=== PATIENT | female | born 1960 | race Caucasian/White ===

== ENCOUNTER → 2018-03-15 | Outpatient (CLI) | payer MEDICARE, OTHER ==
--- NOTE | 2018-03-15 16:46 | MR ---
EXAMINATION TYPE: MR shoulder RT wo con DATE OF EXAM: 03/15/2018 COMPARISON: Prior MR right shoulder dated 05/18/2009 HISTORY: Right shoulder pain TECHNIQUE: Multiplanar, multisequence imaging of the shoulder is performed without contrast. FINDINGS: Rotator Cuff: Rotator cuff tear with retraction is again seen, shoulders are high riding. Acromioclavicular Joint: Arthropathy at the acromioclavicular joint is again noted Glenohumeral Joint: Shoulder is high riding. There is remodeling, arthropathy present Labrum: Mild irregularity noted at the superior labrum, difficult to exclude degenerative fraying or tear Biceps Tendon: There is abnormal intrinsic signal within the long head of biceps tendon compatible wi th partial tear, there is abnormal thickening, fluid signal is present about the tendon and there is susceptibility artifact along the course of the tendon, I question prior surgical intervention at thi s level, similar artifact seen on prior exam at the level of the bicipital groove, the tendon is not well appreciated central to this level. Bone marrow signal: Pseudocysts are present within the humeral head. Undersurface of the acromion maddie ws probable geode formation. Distal acromial spur noted Other: There is a joint effusion present. IMPRESSION: Chronic rotator cuff tear, postop changes, osteoarthritis similar to prior exam
== END | disposition home or self-care (01) ==
LOC: RADMRIMAIN 13:11
PROVIDERS: ATTEND Physician Assistant
DX: M19.011 Primary osteoarthritis, right shoulder (principal); M75.101 Unspecified rotator cuff tear or rupture of right shoulder, not specified as traumatic

== ENCOUNTER → 2018-03-21 | Outpatient (CLI) | payer MEDICARE, OTHER ==
--- NOTE | 2018-03-21 14:30 | MR ---
EXAMINATION TYPE: MR lumbar spine wo con DATE OF EXAM: 03/21/2018 COMPARISON: Prior lumbar MRI 07/31/2013 HISTORY: Back pain TECHNIQUE: Multiplanar, multisequence images of the lumbar spine were acquired. T12-L1 shows stable broad-based disc bulge causing anterior mass effect on the thecal sac. L1-L2: Normal disc appearance without desiccation. No herniation, protrusion or disc bulging. No ca nal stenosis is present. Foramina are patent bilaterally. L2-L3: There is some facet arthropathy change. Mild posterior broad-based disc bulge causes slight an terior mass effect on the thecal sac and is eccentric somewhat towards the left. No definite foramina l encroachment. L3-L4: There is facet arthropathy with hypertrophy ligamentum flavum encroaching somewhat on the post erior lateral thecal sac. No significant central stenosis, disc bulge extends eccentrically towards t he left. No foraminal encroachment. L4-L5: Listhesis contributes with a posterior broad-based disc bulge and facet arthropathy with hyper trophy of the ligamentum flavum causing a trefoil appearance of the thecal sac, moderate to severe ce ntral canal stenosis, bilateral foraminal encroachment, lateral recess stenosis similar to prior exam L5-S1: Facet arthropathy with fragility ligamentum flavum is noted no significant central stenosis. C ircumferential extension of endplate disc complex results in foraminal encroachment, broad-based post erior disc bulge may contact the proximal S1 nerve roots. Lumbar segments are intact. No paraspinal masses are identified. Conus medullaris has a normal appe arance. There is a spinal curvature as on prior. Anterolisthesis grade 1 L4-5 is again seen. There is multilevel spondylosis with endplate discogenic marrow signal change. Loss of disc height signal is greatest at L4-5. Small cortical cyst associated with the right kidney. IMPRESSION: Degenerative disc disease, facet arthropathy, spinal stenosis and additional findings above similar t o prior exam. Additional findings above.
== END ==
LOC: RADMRIMAIN 12:42
PROVIDERS: ATTEND Physical Medicine & Rehabilitation
DX: M48.061 Spinal stenosis, lumbar region without neurogenic claudication (principal); M51.26 Other intervertebral disc displacement, lumbar region; M51.36 Other intervertebral disc degeneration, lumbar region; M46.97 Unspecified inflammatory spondylopathy, lumbosacral region
CPT/HCPCS: 72148

== ENCOUNTER → 2018-10-29 | Day surgery (SDC) | payer MEDICARE, OTHER ==
[~2018-10-29] MED LIST: LACTATED RINGERS 1,000 ML IV SCH; LIDOCAINE 1% 20 ML VIAL (10MG/ML) FOR IV START INTRADERMA PRN; MIDAZOLAM 2 MG/2 ML VIAL ONE; PROPOFOL 10 MG/ML 20 ML VIAL IV ONE
[2018-10-29 08:17] VITALS: RESP 16; TEMP 97.6
--- NOTE | 2018-10-29 08:46 | P.GSHP ---
History of Present Illness H&P Date: 10/29/18 Chief Complaint: GI bleed This a 4-year-old female presents today for colonoscopy. Patient's had issues with GI bleed. Past Medical History Past Medical History: Hypertension, Osteoarthritis (OA) Additional Past Medical History / Comment(s): ALLERGIES/SINUS. CHRONIC PAIN. History of Any Multi-Drug Resistant Organisms: None Reported Past Surgical History: Section, Tonsillectomy Additional Past Surgical History / Comment(s): SINUS SURGERY. BONE SPUR ON ONE SHOULDER. BRONCHITIS Past Anesthesia/Blood Transfusion Reactions: No Reported Reaction Past Psychological History: Anxiety Smoking Status: Current every day smoker Past Alcohol Use History: Occasional Additional Past Alcohol Use History / Comment(s): SMOKES 1PPD, OVER 4O+ YEARS. Past Drug Use History: None Reported Medications and Allergies Home Medications Medication Instructions Recorded Confirmed Type Cetirizine HCl [Zyrtec] 10 mg PO QAM 10/25/18 10/25/18 History DULoxetine HCL [Cymbalta] 30 mg PO QAM 10/25/18 10/25/18 History DULoxetine HCL [Cymbalta] 60 mg PO QAM 10/25/18 10/25/18 History HYDROcodone/APAP 7.5-325MG [[place] 1 tab PO QID PRN 10/25/18 10/25/18 History 7.5-325] Hydrochlorothiazide 12.5 mg PO QAM 10/25/18 10/25/18 History Meloxicam [Mobic] 15 mg PO QAM 10/25/18 10/25/18 History Mirabegron [Myrbetriq] 25 mg PO QAM 10/25/18 10/25/18 History Montelukast [Singulair] 10 mg PO QAM 10/25/18 10/25/18 History hydrOXYzine HCL 25 mg PO TID PRN 10/25/18 10/25/18 History Allergies Allergy/AdvReac Type Severity Reaction Status Date / Time Penicillins Allergy Swelling, Verified 10/29/18 08:10 ITCHING pseudoephedrine Allergy Itching Verified 10/29/18 08:10 [From Sudafed] Surgical - Exam Vital Signs Temp Pulse Resp BP Pulse Ox 97.6 F 62 16 166/72 96 10/29/18 08:16 10/29/18 08:16 10/29/18 08:16 10/29/18 08:16 10/29/18 08:16 - General well developed, well nourished - Eyes PERRL - ENT normal pinna - Neck no masses - Respiratory normal expansion - Cardiovascular Rhythm: regular - Abdomen Abdomen: soft, non tender Assessment and Plan Assessment: GI bleed. We'll perform colonoscopy.
--- NOTE | 2018-10-29 08:59 | P.OP ---
Date of Procedure: 10/29/18 Preoperative Diagnosis: GI bleed Postoperative Diagnosis: External hemorrhoids Procedure(s) Performed: Colonoscopy Anesthesia: MAC Surgeon: Erik Pressley Pathology: none sent Condition: stable Disposition: PACU Description of Procedure: The patient's placed on the endoscopy table in the lateral position. She received IV sedation. Digital rectal exam was performed which revealed severe external hemorrhoids. Flexible colonoscope was then placed patient anus and passed throughout the entire colon. The ileocecal valve lesions. The cecum, ascending and transverse colon appeared normal. The descending and sigmoid colon appeared normal. Scope summer back the rectum and this appeared normal. Scope withdrawn for patient.
[2018-10-29 09:25] VITALS: BP 199/73; PULSE 78
== END | disposition home or self-care (01) ==
LOC: ORWHC2ENDO 07:59
PROVIDERS: ATTEND Surgery
DX: K64.4 Residual hemorrhoidal skin tags (principal); F17.200 Nicotine dependence, unspecified, uncomplicated; G89.29 Other chronic pain; I10 Essential (primary) hypertension; M19.90 Unspecified osteoarthritis, unspecified site; Z88.0 Allergy status to penicillin; Z79.891 Long term (current) use of opiate analgesic; Z79.51 Long term (current) use of inhaled steroids; Z79.899 Other long term (current) drug therapy
CPT/HCPCS: 45378; J2250; J2704

== ENCOUNTER 2020-04-10 13:06 | Inpatient (IN) | payer MEDICARE, OTHER ==
[2020-04-10] MEDS ORDERED: KETOROLAC 15 MG/ML 1 ML VIAL IVP STA (13:24)
[2020-04-10] MEDS ORDERED: SODIUM CHLORIDE 0.9% 1,000 ML IV ONE (13:24)
--- NOTE | 2020-04-10 13:25 | ED ---
ENT HPI - General Chief complaint: ENT Stated complaint: swollen glands, trouble speaking Time Seen by Provider: 04/10/20 13:14 Source: patient, RN notes reviewed Mode of arrival: ambulatory Limitations: no limitations - History of Present Illness Initial comments: This a 59-year-old female presents emergency Department chief complaint right- sided neck mass. Patient states that she's had a sore throat pain for almost 1 week. Patient was placed on azithromycin states that she completed a course of antibiotics prescribed by PCP states has not helped. She states she's had this in the past but usually resolves. No history of throat cancer no prior surgeries. Denies any difficulty breathing states it is painful to swallow no headache dizziness. Patient does admit that she is a smoker. - Related Data Home Medications Medication Instructions Recorded Confirmed Cetirizine HCl [Zyrtec] 10 mg PO QAM 10/25/18 10/25/18 DULoxetine HCL [Cymbalta] 30 mg PO QAM 10/25/18 10/25/18 DULoxetine HCL [Cymbalta] 60 mg PO QAM 10/25/18 10/25/18 HYDROcodone/APAP 7.5-325MG [[place] 1 tab PO QID PRN 10/25/18 10/25/18 7.5-325] Hydrochlorothiazide 12.5 mg PO QAM 10/25/18 10/25/18 [hydroCHLOROthiazide] Meloxicam [Mobic] 15 mg PO QAM 10/25/18 10/25/18 Mirabegron [Myrbetriq] 25 mg PO QAM 10/25/18 10/25/18 Montelukast [Singulair] 10 mg PO QAM 10/25/18 10/25/18 hydrOXYzine HCL 25 mg PO TID PRN 10/25/18 10/25/18 Previous Rx's Medication Instructions Recorded predniSONE 50 mg PO DAILY #5 tab 04/10/20 valACYclovir HCL [Valtrex] 1,000 mg PO Q8HR #30 tab 04/10/20 Allergies Allergy/AdvReac Type Severity Reaction Status Date / Time Penicillins Allergy Swelling, Verified 04/10/20 13:11 ITCHING pseudoephedrine Allergy Itching Verified 04/10/20 13:11 [facility] Review of Systems ROS Statement: Those systems with pertinent positive or pertinent negative responses have been documented in the HPI. ROS Other: All systems not noted in ROS Statement are negative. Past Medical History Past Medical History: Hypertension, Osteoarthritis (OA) Additional Past Medical History / Comment(s): ALLERGIES/SINUS. CHRONIC PAIN. History of Any Multi-Drug Resistant Organisms: None Reported Past Surgical History: Section, Tonsillectomy Additional Past Surgical History / Comment(s): SINUS SURGERY. BONE SPUR ON ONE SHOULDER. BRONCHITIS Past Anesthesia/Blood Transfusion Reactions: No Reported Reaction Past Psychological History: Anxiety Smoking Status: Current every day smoker Past Alcohol Use History: Occasional Past Drug Use History: None Reported General Exam Limitations: no limitations General appearance: alert, in no apparent distress Head exam: Present: atraumatic, normocephalic, normal inspection Eye exam: Present: normal appearance, PERRL, EOMI. Absent: scleral icterus, conjunctival injection, periorbital swelling ENT exam: Present: mucous membranes dry. Absent: normal exam (Dry oropharynx), normal oropharynx, mucous membranes moist Neck exam: Present: tenderness, full ROM, lymphadenopathy. Absent: normal inspection (Large right-sided firm nonfluctuant neck mass), meningismus Respiratory exam: Present: normal lung sounds bilaterally. Absent: respiratory distress, wheezes, rales, rhonchi, stridor Cardiovascular Exam: Present: regular rate, normal rhythm, normal heart sounds. Absent: systolic murmur, diastolic murmur, rubs, gallop, clicks Course Vital Signs 04/10/20 13:07 Temperature 99.2 F Pulse Rate 100 Respiratory 20 Rate Blood Pressure 139/62 O2 Sat by Pulse 100 Oximetry Medical Decision Making - Medical Decision Making 59-year-old female presented for right-sided facial paralysis. This doesn't involve the right forehead right eyelid. Patient has George's palsy. Patient be discharged with antivirals, prednisone. She will follow-up with urology and return for any worsening change in symptoms. We discussed eyedrops the right eye she may take her right eye shut if unable to completely close. - Lab Data Result diagrams: 04/10/20 13:41 04/10/20 13:41 Lab Results 04/10/20 04/10/20 04/10/20 Range/Units 13:41 13:41 13:41 WBC 20.5 H (3.8-10.6) k/uL RBC 3.73 L (3.80-5.40) m/uL Hgb 12.2 (11.4-16.0) gm/dL Hct 35.4 (34.0-46.0) % MCV 94.9 (80.0-100.0) fL MCH 32.5 (25.0-35.0) pg MCHC 34.3 (31.0-37.0) g/dL RDW 12.7 (11.5-15.5) % Plt Count 351 (150-450) k/uL MPV 7.2 Neutrophils % 77 % Lymphocytes % 15 % Monocytes % 6 % Eosinophils % 1 % Basophils % 1 % Neutrophils # 15.8 H (1.3-7.7) k/uL Lymphocytes # 3.1 (1.0-4.8) k/uL Monocytes # 1.2 H (0-1.0) k/uL Eosinophils # 0.2 (0-0.7) k/uL Basophils # 0.1 (0-0.2) k/uL Sodium 132 L (137-145) mmol/L Potassium 4.4 (3.5-5.1) mmol/L Chloride 97 L (98-107) mmol/L Carbon Dioxide 24 (22-30) mmol/L Anion Gap 11 mmol/L BUN 16 (7-17) mg/dL Creatinine 0.97 (0.52-1.04) mg/dL Est GFR (CKD-EPI)AfAm 73 (>60 ml/min/1.73 sqM) Est GFR (CKD-EPI)NonAf 64 (>60 ml/min/1.73 sqM) Glucose 100 H (74-99) mg/dL Plasma Lactic Acid Ridge (0.7-2.0) mmol/L Calcium 9.6 (8.4-10.2) mg/dL Total Bilirubin 0.6 (0.2-1.3) mg/dL AST 21 (14-36) U/L ALT 11 (4-34) U/L Alkaline Phosphatase 98 (38-126) U/L Total Protein 7.2 (6.3-8.2) g/dL Albumin 4.2 (3.5-5.0) g/dL Heterophile Antibody Negative (Negative) Group A Strep Rapid (Negative) 04/10/20 04/10/20 Range/Units 13:41 13:41 WBC (3.8-10.6) k/uL RBC (3.80-5.40) m/uL Hgb (11.4-16.0) gm/dL Hct (34.0-46.0) % MCV (80.0-100.0) fL MCH (25.0-35.0) pg MCHC (31.0-37.0) g/dL RDW (11.5-15.5) % Plt Count (150-450) k/uL MPV Neutrophils % % Lymphocytes % % Monocytes % % Eosinophils % % Basophils % % Neutrophils # (1.3-7.7) k/uL Lymphocytes # (1.0-4.8) k/uL Monocytes # (0-1.0) k/uL Eosinophils # (0-0.7) k/uL Basophils # (0-0.2) k/uL Sodium (137-145) mmol/L Potassium (3.5-5.1) mmol/L Chloride (98-107) mmol/L Carbon Dioxide (22-30) mmol/L Anion Gap mmol/L BUN (7-17) mg/dL Creatinine (0.52-1.04) mg/dL Est GFR (CKD-EPI)AfAm (>60 ml/min/1.73 sqM) Est GFR (CKD-EPI)NonAf (>60 ml/min/1.73 sqM) Glucose (74-99) mg/dL Plasma Lactic Acid Ridge 1.3 (0.7-2.0) mmol/L Calcium (8.4-10.2) mg/dL Total Bilirubin (0.2-1.3) mg/dL AST (14-36) U/L ALT (4-34) U/L Alkaline Phosphatase (38-126) U/L Total Protein (6.3-8.2) g/dL Albumin (3.5-5.0) g/dL Heterophile Antibody (Negative) Group A Strep Rapid Negative (Negative) Disposition Clinical Impression: George's palsy Disposition: HOME SELF-CARE Condition: Stable Instructions (If sedation given, give patient instructions): George Palsy (ED) Additional Instructions: Please return to the Emergency Department if symptoms worsen or any other concerns. Prescriptions: predniSONE 50 mg PO DAILY #5 tab valACYclovir HCL [Valtrex] 1,000 mg PO Q8HR #30 tab Is patient prescribed a controlled substance at d/c from ED?: No Referrals: Johnathan Song DO [Primary Care Provider] - 1-2 days Shanice Lawrence MD [REFERRING] - 1-2 days Time of Disposition: 15:06
[2020-04-10 14:21] LABS: Basophils # (A) 0.1 k/uL (0-0.2); Basophils % (A) 1 %; Eosinophils # (A) 0.2 k/uL (0-0.7); Eosinophils % (A) 1 %; HCT 35.4 % (34.0-46.0); HGB 12.2 gm/dL (11.4-16.0); Lymphocytes # (A) 3.1 k/uL (1.0-4.8); Lymphocytes % (A) 15 %; MCH 32.5 pg (25.0-35.0); MCHC 34.3 g/dL (31.0-37.0); MCV 94.9 fL (80.0-100.0); Mean Platelet Volume 7.2; Monocytes # (A) 1.2 k/uL (0-1.0); Monocytes % (A) 6 %; Neutrophils # (A) 15.8 k/uL (1.3-7.7); Neutrophils % (A) 77 %; Platelet Count 351 k/uL (150-450); RBC 3.73 m/uL (3.80-5.40); RDW 12.7 % (11.5-15.5); WBC 20.5 k/uL (3.8-10.6)
[2020-04-10 14:44] LABS: Albumin 4.2 g/dL (3.5-5.0); Calcium 9.6 mg/dL (8.4-10.2); Potassium 4.4 mmol/L (3.5-5.1); Total Bilirubin 0.6 mg/dL (0.2-1.3); Total Protein 7.2 g/dL (6.3-8.2)
--- NOTE | 2020-04-10 15:09 | ED ---
Medical Decision Making - Lab Data Result diagrams: 04/10/20 13:41 04/10/20 13:41 <Lamont Zamorano - Last Filed: 04/10/20 15:47> - Lab Data Result diagrams: 04/10/20 13:41 04/10/20 13:41 <Praveen Pedro - Last Filed: 04/10/20 15:50> - Medical Decision Making Patient reevaluated and reexamined by myself, Dr. Zamorano. Patient does have tender right anterior/lateral neck mass. Patient states that is living and present for around one week. Patient does have elevated white blood cell count and abnormal CT. Patient has been on outpatient antibiotics. Patient states she does have occasional rare difficulty with swallowing. No dyspnea. Patient does have mildly hoarse voice. Patient be started with IV antibiotics and consult with ENT and oncology and do agree with PA findings. This includes d iagnostic interpretation and treatment plan. (Lamont Zamorano) Prior MDM was an error Patient is a 59-year-old female presented for right- sided neck pain swelling. There is concerning and adenopathy and neck mass or cancer. I discuss case with Dr. Westfall or constipation placed on antibiotics, consult to oncology and ENT. (Praveen Pedro) - Lab Data Lab Results 04/10/20 04/10/20 04/10/20 Range/Units 13:41 13:41 13:41 WBC 20.5 H (3.8-10.6) k/uL RBC 3.73 L (3.80-5.40) m/uL Hgb 12.2 (11.4-16.0) gm/dL Hct 35.4 (34.0-46.0) % MCV 94.9 (80.0-100.0) fL MCH 32.5 (25.0-35.0) pg MCHC 34.3 (31.0-37.0) g/dL RDW 12.7 (11.5-15.5) % Plt Count 351 (150-450) k/uL MPV 7.2 Neutrophils % 77 % Lymphocytes % 15 % Monocytes % 6 % Eosinophils % 1 % Basophils % 1 % Neutrophils # 15.8 H (1.3-7.7) k/uL Lymphocytes # 3.1 (1.0-4.8) k/uL Monocytes # 1.2 H (0-1.0) k/uL Eosinophils # 0.2 (0-0.7) k/uL Basophils # 0.1 (0-0.2) k/uL Sodium 132 L (137-145) mmol/L Potassium 4.4 (3.5-5.1) mmol/L Chloride 97 L (98-107) mmol/L Carbon Dioxide 24 (22-30) mmol/L Anion Gap 11 mmol/L BUN 16 (7-17) mg/dL Creatinine 0.97 (0.52-1.04) mg/dL Est GFR (CKD-EPI)AfAm 73 (>60 ml/min/1.73 sqM) Est GFR (CKD-EPI)NonAf 64 (>60 ml/min/1.73 sqM) Glucose 100 H (74-99) mg/dL Plasma Lactic Acid Ridge (0.7-2.0) mmol/L Calcium 9.6 (8.4-10.2) mg/dL Total Bilirubin 0.6 (0.2-1.3) mg/dL AST 21 (14-36) U/L ALT 11 (4-34) U/L Alkaline Phosphatase 98 (38-126) U/L Total Protein 7.2 (6.3-8.2) g/dL Albumin 4.2 (3.5-5.0) g/dL Heterophile Antibody Negative (Negative) Group A Strep Rapid (Negative) 04/10/20 04/10/20 Range/Units 13:41 13:41 WBC (3.8-10.6) k/uL RBC (3.80-5.40) m/uL Hgb (11.4-16.0) gm/dL Hct (34.0-46.0) % MCV (80.0-100.0) fL MCH (25.0-35.0) pg MCHC (31.0-37.0) g/dL RDW (11.5-15.5) % Plt Count (150-450) k/uL MPV Neutrophils % % Lymphocytes % % Monocytes % % Eosinophils % % Basophils % % Neutrophils # (1.3-7.7) k/uL Lymphocytes # (1.0-4.8) k/uL Monocytes # (0-1.0) k/uL Eosinophils # (0-0.7) k/uL Basophils # (0-0.2) k/uL Sodium (137-145) mmol/L Potassium (3.5-5.1) mmol/L Chloride (98-107) mmol/L Carbon Dioxide (22-30) mmol/L Anion Gap mmol/L BUN (7-17) mg/dL Creatinine (0.52-1.04) mg/dL Est GFR (CKD-EPI)AfAm (>60 ml/min/1.73 sqM) Est GFR (CKD-EPI)NonAf (>60 ml/min/1.73 sqM) Glucose (74-99) mg/dL Plasma Lactic Acid [place] 1.3 (0.7-2.0) mmol/L Calcium (8.4-10.2) mg/dL Total Bilirubin (0.2-1.3) mg/dL AST (14-36) U/L ALT (4-34) U/L Alkaline Phosphatase (38-126) U/L Total Protein (6.3-8.2) g/dL Albumin (3.5-5.0) g/dL Heterophile Antibody (Negative) Group A Strep Rapid Negative (Negative) Disposition <Lamont Zamorano - Last Filed: 04/10/20 15:47> <Praveen Pedro - Last Filed: 04/10/20 15:50> Clinical Impression: Cervical lymphadenopathy, Neck mass, Leukocytosis Disposition: ADMITTED IP TO THIS [facility] Condition: Fair Additional Instructions: Please return to the Emergency Department if symptoms worsen or any other concerns. Referrals: Shanice Lawrence MD [REFERRING] - 1-2 days Johnathan Song DO [Primary Care Provider] - 1-2 days
--- NOTE | 2020-04-10 15:34 | CT ---
EXAMINATION TYPE: CT soft tissue neck w con DATE OF EXAM: 04/10/2020 HISTORY: right submandibular swelling COMPARISON: CT cervical spine September 04, 2019 CT DLP: 192 mGycm. Automated Exposure Control for Dose Reduction was Utilized. TECHNIQUE: CT scan of the neck is performed with IV Contrast, patient injected with 100 mL of Isovue 300, axial images are obtained, coronal and sagittal reformatted images are reviewed. FINDINGS: Airway: Mild underlying emphysematous change. No obvious enhancing mucosal lesion. Parotid/submandibular glands: No gross abnormality seen. Carotid/Vascular Structures: No significant abnormality. Osseous Structures: Loss of normal cervical curvature mild multilevel disc space narrowing. Other: Abnormal heterogeneous 1.9 x 1.3 cm oval mass measures 2.8 cm craniocaudal dimension X 43 and coronal image 36 just posterior to the inferior aspect of the right submandibular gland. There are ad ditional prominent suspicious lymph nodes scattered throughout the neck particularly right aspect. Fo r reference there is 11 x 9 mm lymph node on image 37 just below level of hyoid bone. There is 11 x 9 mm lymph node at level of thyroid gland right aspect that measures 28. IMPRESSION: Abnormal suspicious right-sided neck adenopathy. Underlying primary neck or throat neopla sm must be excluded despite nonvisualization of obvious enhancing mass. ENT referral advised for furt her workup and/or management.
[2020-04-10] MEDS ORDERED: DEXAMETHASONE SOD PHOSPHATE 10 MG/ML 1 ML VIAL IV STA (15:48)
[2020-04-10] MEDS ORDERED: NALOXONE 0.4 MG/ML 1 ML VIAL IV PRN (15:50)
[2020-04-10] MEDS ORDERED: HYDROcodone/APAP 7.5-325MG 1 EACH TAB PO PRN (15:51)
[2020-04-10] MEDS ORDERED: hydrOXYzine HCL 25 MG TAB PO PRN (15:51)
[2020-04-10] MEDS: SODIUM CHLORIDE 0.9% 1,000 ML IV SCH (16:24)
[2020-04-11] MEDS: MONTELUKAST 10 MG TAB PO SCH (08:54)
[2020-04-11] MEDS: SODIUM CHLORIDE 0.9% 1,000 ML IV SCH (08:55)
[2020-04-11] MEDS ORDERED: hydroCHLOROthiazide 12.5 MG CAP PO SCH (09:00)
[2020-04-11] MEDS ORDERED: DULoxetine HCL 60 MG CAPSULE.DR PO SCH (09:00)
[2020-04-11] MEDS ORDERED: DULoxetine HCL 30 MG CAPSULE.DR PO SCH (09:00)
[2020-04-11] MEDS: MIRABEGRON 25 MG PO SCH (11:05)
[2020-04-11] MEDS ORDERED: ALBUTEROL NEBULIZED 2.5 MG/3 ML INHALATION PRN ×2 (11:16)
[2020-04-11] MEDS ORDERED: LORATADINE 10 MG TAB PO SCH (11:30)
[2020-04-11] MEDS: AZELASTINE 137MCG/SPRAY EA NOSTRIL SCH ×2 (12:23→20:14)
[2020-04-11] MEDS: DULoxetine HCL 20 MG CAPSULE.DR PO SCH (12:24)
[2020-04-11] MEDS ORDERED: RX INFO: IV CONTRAST WAS GIVEN 1 EACH MISC MISCELLANE PRN (13:10)
--- NOTE | 2020-04-11 13:10 | P.CONS ---
History of Present Illness - Reason for Consult Consult date: 04/11/20 Neck adenopathy, leukocytosis - History of Present Illness Patient is a 59-year-old white female, who presented to the emergency room with complains of noticing painful lumps in the right upper neck. The patient had actually been having a sore throat for somewhat more than a week. She had azithromycin and then steroids as an outpatient, without much improvement. She then noticed a mass in the right upper neck, which appeared to become more prominent and tender on palpation. She she reports difficulty in swallowing liquids, especially large bolus of water, off and on. She denies any problems with swallowing of solids. She has had significant hoarseness of voice for the past week.. Patient on exam of the ER was found to have palpable right neck adenopathy and underwent CT of the soft tissue neck. This revealed enlarged lymph nodes mostly on the right side of the neck involving the upper, as well as the middle chains. Most prominent was a 1.9 cm node just posterior to the right submandibular gland. Consult was therefore placed for further evaluation and recommendations. Patient is a current smoker. No prior history of malignancy. Review of Systems Constitutional: Reports chills, Reports fever Eyes: denies blurred vision, denies pain Ears, nose, mouth and throat: Reports dysphagia, Reports neck fullness/pressure, Reports neck lump, Reports post-nasal drip, Reports sinus pressure, Reports sore throat Cardiovascular: Denies chest pain, Denies shortness of breath Respiratory: Reports cough (Very mild) Gastrointestinal: Denies abdominal pain, Denies diarrhea, Denies nausea, Denies vomiting Genitourinary: Denies dysuria, Denies hematuria Menstruation: Reports postmenopausal Musculoskeletal: Denies myalgias Integumentary: Denies pruritus, Denies rash Neurological: Denies numbness, Denies weakness Psychiatric: Denies anxiety, Denies depression Endocrine: Denies fatigue, Denies weight change Hematologic/Lymphatic: Reports as per HPI, Reports lymphadenopathy Past Medical History Past Medical History: Hypertension, Osteoarthritis (OA) Additional Past Medical History / Comment(s): ALLERGIES/SINUS. CHRONIC PAIN. History of Any Multi-Drug Resistant Organisms: None Reported Past Surgical History: Section, Tonsillectomy Additional Past Surgical History / Comment(s): SINUS SURGERY. BONE SPUR ON ONE SHOULDER. Past Anesthesia/Blood Transfusion Reactions: No Reported Reaction Past Psychological History: Anxiety Smoking Status: Current every day smoker Past Alcohol Use History: Occasional Additional Past Alcohol Use History / Comment(s): SMOKES 3/4-1PPD, OVER 4O+ YEARS. Past Drug Use History: None Reported Medications and Allergies Home Medications Medication Instructions Recorded Confirmed Type Cetirizine HCl [Zyrtec] 10 mg PO QAM 10/25/18 04/10/20 History DULoxetine HCL [Cymbalta] 60 mg PO DAILY 10/25/18 04/10/20 History HYDROcodone/APAP 7.5-325MG [[place] 1 tab PO TID PRN 10/25/18 04/10/20 History 7.5-325] Montelukast [Singulair] 10 mg PO HS 10/25/18 04/10/20 History hydrOXYzine HCL 25 mg PO TID PRN 10/25/18 04/10/20 History Albuterol Nebulized [Ventolin 2.5 mg INHALATION RT-Q8H PRN 04/10/20 04/10/20 History Nebulized] Albuterol Sulfate [Ventolin HFA] 2 puff INHALATION RT-Q4H PRN 04/10/20 04/10/20 History Azelastine HCl 2 spray EA NOSTRIL BID 04/10/20 04/10/20 History DULoxetine HCL 40 mg PO DAILY 04/10/20 04/10/20 History EPINEPHrine (Auto Inject) [Epipen] 0.3 mg IM ONCE PRN 04/10/20 04/10/20 History Fluticasone Nasal [place] [Flonase 2 spray EA NOSTRIL DAILY 04/10/20 04/10/20 History Nasal [place]] Loratadine [Claritin] 10 mg PO DAILY 04/10/20 04/10/20 History Tiotropium 2.5 Mcg/Puff [Spiriva 2 puff INHALATION RT-DAILY 04/10/20 04/10/20 History Respimat 2.5 Mcg] Allergies Allergy/AdvReac Type Severity Reaction Status Date / Time Penicillins Allergy Swelling, Verified 04/10/20 16:41 ITCHING pseudoephedrine Allergy Itching Verified 04/10/20 16:41 [From Sudafed] Physical Exam Vitals: Vital Signs Temp Pulse Pulse Resp BP BP Pulse Ox 04/11/20 04:40 98.2 F 92 16 112/50 97 04/10/20 21:40 99.0 F 83 16 151/66 95 04/10/20 18:25 78 16 128/71 99 04/10/20 16:18 98.4 F 88 18 141/79 96 04/10/20 13:07 99.2 F 100 20 139/62 100 Intake and Output 04/10/20 04/11/20 04/11/20 22:59 06:59 14:59 Other: Voiding Method Toilet # Voids 2 Weight 43.091 kg - Constitutional General appearance: no acute distress - EENT Eyes: EOMI, PERRLA ENT: hearing grossly normal, normal oropharynx - Neck Neck: lymphadenopathy (Most prominent 2 cm right submandibular. At least 2-3 other nodes palpable right middle and lower cervical, largest 1 cm middle posterior) - Respiratory Respiratory: bilateral: CTA - Cardiovascular Rhythm: regular Heart sounds: normal: S1, S2 - Gastrointestinal General gastrointestinal: normal bowel sounds, soft - Integumentary Integumentary: normal - Neurologic Neurologic: CNII-XII intact - Musculoskeletal Musculoskeletal: generalized weakness, strength equal bilaterally - Psychiatric Psychiatric: A&O x's 3, appropriate affect Results CBC & Chem 7: 04/10/20 13:41 04/10/20 13:41 Labs: Abnormal Lab Results - Last 24 Hours (Table) 04/10/20 04/10/20 Range/Units 13:41 13:41 WBC 20.5 H (3.8-10.6) k/uL RBC 3.73 L (3.80-5.40) m/uL Neutrophils # 15.8 H (1.3-7.7) k/uL Monocytes # 1.2 H (0-1.0) k/uL Sodium 132 L (137-145) mmol/L Chloride 97 L (98-107) mmol/L Glucose 100 H (74-99) mg/dL Microbiology - Last 24 Hours (Table) 04/10/20 13:41 Group A Strep Throat Culture - Preliminary Throat Comments: CT neck report reviewed Assessment and Plan (1) Cervical lymphadenopathy Narrative/Plan: The patient's physical exam findings as well as computed tomography scan findings, and implications, were reviewed with her. She was advised that her symptoms of some fever and chills, as well as element of symptoms over a week, and tender adenopathy argues in favor of infection/inflammation. However with her history of smoking, as well as the hoarseness and dysphagia, malignancy definitely remains a concern. - Case was discussed with the admitting service. A CT of the chest will be ordered to rule out any chest mass causing recurrent laryngeal nerve palsy. If this is negative, then the patient would need ENT evaluation for her vocal cords and the neck nodes. In that situation, if vocal cords are normal, then the recommendation would be to biopsy the neck nodes if there are persistent, with treatment for infection. Current Visit: Yes Status: Acute Code(s): R59.0 - LOCALIZED ENLARGED LYMPH NODES SNOMED Code(s): 246516658 Plan: Defer to the admitting service for management of her other medical problems
[2020-04-11] MEDS: DULoxetine HCL 60 MG CAPSULE.DR PO SCH (14:37)
[2020-04-11] MEDS: NAPROXEN 250 MG TAB PO SCH ×3 (14:37→20:13)
[2020-04-11] MEDS: LORATADINE-PSEUDOEPH 5-120 MG 1 EACH TAB.ER.12H PO SCH ×2 (14:39→20:12)
[2020-04-11] MEDS: NICOTINE 21MG/24HR PATCH TRANSDERM SCH (14:41)
[2020-04-11] MEDS: ENOXAPARIN 40 MG/0.4 ML SYRINGE SQ SCH (14:41)
[2020-04-11 15:47] LABS: African American GFR (CKD) 64 (>60 ml/min/1.73 sqM); Anion Gap 7 mmol/L; Blood Urea Nitrogen 19 mg/dL (7-17); Carbon Dioxide 25 mmol/L (22-30); Chloride 108 mmol/L (98-107); Glucose 183 mg/dL (74-99); Non-African American GFR(CKD) 56 (>60 ml/min/1.73 sqM); Potassium 4.1 mmol/L (3.5-5.1); Sodium 140 mmol/L (137-145)
[2020-04-11] MEDS ORDERED: IPRATROPIUM 0.5 MG/2.5 ML NEBU INHALATION SCH (16:00)
--- NOTE | 2020-04-11 16:51 | CT ---
EXAMINATION TYPE: CT chest w con DATE OF EXAM: 04/11/2020 COMPARISON: None HISTORY: chest mass CT DLP: 138.9 mGycm Automated exposure control for dose reduction was used. CONTRAST: CT scan of the chest is performed with IV Contrast, patient injected with 80cc mL of Isovue 300. FINDINGS: LUNGS: The lungs are remarkable for emphysematous changes. Some bandlike areas of increased attenuati on at the lung bases may reflect atelectasis or scarring., there is no concerning parenchymal mass or nodule identified. There is no pleural effusion or pneumothorax seen. The tracheobronchial tree i s patent, some retained secretions are present within the trachea. MEDIASTINUM: There are no greater than 1 cm hilar or mediastinal lymph nodes. No pericardial effusi on is seen. Pulmonary artery is dilated. AORTA: No additional significant abnormality is seen. OTHER: No additional significant abnormality is seen. IMPRESSION: Emphysema, correlate for pulmonary artery hypertension UE UE used
[2020-04-11] MEDS: IPRATROPIUM-ALBUTEROL 3 ML NEB INHALATION SCH ×2 (17:06→20:50)
[2020-04-11] MEDS: BUDESONIDE 1 MG/2 ML NEBU INHALATION SCH ×2 (17:07)
--- NOTE | 2020-04-11 21:17 | P.HPIM ---
History of Present Illness H&P Date: 04/11/20 Chief Complaint: Swelling in the right side of the neck History of presenting complaint: This is a pleasant 59-year-old patient of Dr. Letha Song. Chronic stable medical conditions include hypertension, osteoarthritis, ALLERGIES, patient is a smoker. presentation story started about 10 days ago. Initially patient is felt to have a right ear infection. Saw her family doctor. prescribed antibiotics. noticed enlarging lymph node in the right side of the neck below the right jaw and the ear. Also had fever and chills. significant cough. With the sinus drainage. Decreased appetite decreased taste. Was finding it hard to swallow. After receiving antibiotics for now arrival feeling a bit better. Review of systems: GEN.: As above EYES: None HEENT: As above NECK: As above RESPIRATORY: Cough and wheezing CARDIOVASCULAR: None GASTROINTESTINAL: None GENITOURINARY: None MUSCULOSKELETAL: Joint pains] LYMPHATICS: None HEMATOLOGICAL: None PSYCHIATRY: Anxious NEUROLOGICAL: None Past medical history to include: Hypertension, osteoarthritis, anxiety, Social history: daughter lives with her. Smokes about three-quarter packs a day. Alcohol occasionally. Physical examination: VITAL SIGNS: 99.2, 100, 20, 139/62, 100% room air GENERAL: BMI 19.2, sitting up, tired. EYES: Pupils equal. Conjunctiva normal. HEENT: External appearance of nose and ears normal, oral cavity grossly normal enlarged lymph node, tender behind right jaw, below the earlobe. NECK: JVD not raised; masses not palpable. HEART: First and second heart sounds are normal; no edema. LUNGS: Respiratory rate increased, decreased breath sounds prolonged expiration and wheezing. ABDOMEN: Soft, nontender, liver spleen not palpable, no masses palpable. PSYCH: Alert and oriented x3; mood and affect anxiousl. NEUROLOGICAL: Cranial nerves grossly intact; no facial asymmetry, power and sensation grossly intact. LYMPHATICS: Lymph nodes palpable in the right side of the neck INVESTIGATIONS, reviewed in the clinical context: WBC 20.5 hemoglobin 12.2 platelets 351 increased neutrophils potassium 4.4 creatinine 0.97 Coronavirus [PCF]-not detected Heterophile antibody negative, group A strep rapid-negative Computed tomography scan soft tissue neck without contrast: Abnormal suspicion right-sided neck adenopathy. Neoplasm could not be excluded. Assessment and plan: -Acute COPD exacerbation in a current smoker. Patient started on , nebulized bronchodilators. IV Solu-Medrol. -Enlarging right cervical adenopathy likely secondary to right ear infection. -Chronic nicotine dependence patient active cigarette smoker -Chronic anxiety disorder, for depression on Cymbalta -Acute on chronic sinusitis with active postnasal drainage precipitating bouts of coughing. Started patient on Claritin-D Discussed with oncology Dr. Jung. Patient get a computed tomography scan of the chest. Care was discussed with the patient. Questions answered. ENT has been consulted. Past Medical History Past Medical History: Hypertension, Osteoarthritis (OA) Additional Past Medical History / Comment(s): ALLERGIES/SINUS. CHRONIC PAIN. History of Any Multi-Drug Resistant Organisms: None Reported Past Surgical History: Section, Tonsillectomy Additional Past Surgical History / Comment(s): SINUS SURGERY. BONE SPUR ON ONE SHOULDER. Past Anesthesia/Blood Transfusion Reactions: No Reported Reaction Past Psychological History: Anxiety Smoking Status: Current every day smoker Past Alcohol Use History: Occasional Additional Past Alcohol Use History / Comment(s): SMOKES 3/4-1PPD, OVER 4O+ YEARS. Past Drug Use History: None Reported Medications and Allergies Home Medications Medication Instructions Recorded Confirmed Type Cetirizine HCl [Zyrtec] 10 mg PO QAM 10/25/18 04/10/20 History DULoxetine HCL [Cymbalta] 60 mg PO DAILY 10/25/18 04/10/20 History HYDROcodone/APAP 7.5-325MG [[place] 1 tab PO TID PRN 10/25/18 04/10/20 History 7.5-325] Montelukast [Singulair] 10 mg PO HS 10/25/18 04/10/20 History hydrOXYzine HCL 25 mg PO TID PRN 10/25/18 04/10/20 History Albuterol Nebulized [Ventolin 2.5 mg INHALATION RT-Q8H PRN 04/10/20 04/10/20 History Nebulized] Albuterol Sulfate [Ventolin HFA] 2 puff INHALATION RT-Q4H PRN 04/10/20 04/10/20 History Azelastine HCl 2 spray EA NOSTRIL BID 04/10/20 04/10/20 History DULoxetine HCL 40 mg PO DAILY 04/10/20 04/10/20 History EPINEPHrine (Auto Inject) [Epipen] 0.3 mg IM ONCE PRN 04/10/20 04/10/20 History Fluticasone Nasal [place] [Flonase 2 spray EA NOSTRIL DAILY 04/10/20 04/10/20 History Nasal [place]] Loratadine [Claritin] 10 mg PO DAILY 04/10/20 04/10/20 History Tiotropium 2.5 Mcg/Puff [Spiriva 2 puff INHALATION RT-DAILY 04/10/20 04/10/20 History Respimat 2.5 Mcg] Allergies Allergy/AdvReac Type Severity Reaction Status Date / Time Penicillins Allergy Swelling, Verified 04/10/20 16:41 ITCHING pseudoephedrine Allergy Itching Verified 04/10/20 16:41 [From [facility]] Physical Exam Vitals: Vital Signs Temp Pulse Pulse Resp BP BP Pulse Ox 04/11/20 04:40 98.2 F 92 16 112/50 97 04/10/20 21:40 99.0 F 83 16 151/66 95 04/10/20 18:25 78 16 128/71 99 04/10/20 16:18 98.4 F 88 18 141/79 96 04/10/20 13:07 99.2 F 100 20 139/62 100 Intake and Output 04/10/20 04/11/20 04/11/20 22:59 06:59 14:59 Other: Voiding Method Toilet # Voids 2 Weight 43.091 kg Results CBC & Chem 7: 04/10/20 13:41 04/11/20 15:12 Labs: Abnormal Lab Results - Last 24 Hours (Table) 04/10/20 04/10/20 Range/Units 13:41 13:41 WBC 20.5 H (3.8-10.6) k/uL RBC 3.73 L (3.80-5.40) m/uL Neutrophils # 15.8 H (1.3-7.7) k/uL Monocytes # 1.2 H (0-1.0) k/uL Sodium 132 L (137-145) mmol/L Chloride 97 L (98-107) mmol/L Glucose 100 H (74-99) mg/dL Microbiology - Last 24 Hours (Table) 04/10/20 13:41 Group A Strep Throat Culture - Preliminary Throat
[2020-04-11] MEDS ORDERED: ACETAMINOPHEN TAB 325 MG TAB PO PRN (21:19)
[2020-04-11] MEDS ORDERED: MELATONIN 3 MG TABLET PO PRN (22:00)
[2020-04-11] MEDS ORDERED: ONDANSETRON 4 MG/2 ML VIAL IVP PRN (22:00)
[2020-04-11] MEDS: methylPREDNISolone SOD SUCCI 40 MG/ML 1 ML VIAL IV SCH (23:37)
[2020-04-12] MEDS ORDERED: CALCIUM CARBONATE 500 MG CHEWABLE PO PRN
[2020-04-12] MEDS ORDERED: LACTULOSE 20 GM/30 ML CUP PO PRN
[2020-04-12] MEDS ORDERED: MAG HYDROX/AL HYDROX/SIMETH 30 ML CUP PO PRN
[2020-04-12] MEDS ORDERED: ALPRAZolam 0.25 MG TAB PO PRN
[2020-04-12] MEDS: SODIUM CHLORIDE 0.9% 1,000 ML IV SCH ×2 (02:56→08:56)
[2020-04-12 06:23] LABS: African American GFR (CKD) 89 (>60 ml/min/1.73 sqM); Anion Gap 6 mmol/L; Blood Urea Nitrogen 14 mg/dL (7-17); Calcium 8.8 mg/dL (8.4-10.2); Carbon Dioxide 26 mmol/L (22-30); Chloride 108 mmol/L (98-107); Glucose 89 mg/dL (74-99); Non-African American GFR(CKD) 77 (>60 ml/min/1.73 sqM); Potassium 4.4 mmol/L (3.5-5.1); Sodium 140 mmol/L (137-145)
[2020-04-12 07:26] LABS: Glucose,Whole Blood 118 mg/dL (75-99)
[2020-04-12] MEDS: INSULIN ASPART (NovoLOG) 100 UNIT/ML VIAL SQ SCH ×4 (07:30→21:43)
[2020-04-12] MEDS: methylPREDNISolone SOD SUCCI 40 MG/ML 1 ML VIAL IV SCH ×2 (08:53→17:31)
[2020-04-12] MEDS: DULoxetine HCL 60 MG CAPSULE.DR PO SCH (08:53)
[2020-04-12] MEDS: DULoxetine HCL 20 MG CAPSULE.DR PO SCH (08:53)
[2020-04-12] MEDS: NAPROXEN 250 MG TAB PO SCH ×3 (08:54→21:42)
[2020-04-12] MEDS: MONTELUKAST 10 MG TAB PO SCH (08:54)
[2020-04-12] MEDS: LORATADINE-PSEUDOEPH 5-120 MG 1 EACH TAB.ER.12H PO SCH ×2 (08:55→21:27)
[2020-04-12] MEDS: AZELASTINE 137MCG/SPRAY EA NOSTRIL SCH ×2 (08:55→21:42)
[2020-04-12] MEDS: ENOXAPARIN 40 MG/0.4 ML SYRINGE SQ SCH (08:55)
[2020-04-12] MEDS: MIRABEGRON 25 MG PO SCH (08:55)
[2020-04-12] MEDS ORDERED: MAGNESIUM HYDROXIDE 2,400 MG/10 ML CUP PO PRN (09:00)
[2020-04-12] MEDS: NICOTINE 21MG/24HR PATCH TRANSDERM SCH (09:00)
[2020-04-12] MEDS: IPRATROPIUM-ALBUTEROL 3 ML NEB INHALATION SCH ×4 (09:10→20:29)
[2020-04-12] MEDS: BUDESONIDE 1 MG/2 ML NEBU INHALATION SCH ×2 (09:10→20:29)
[2020-04-12 11:37] LABS: Glucose,Whole Blood 131 mg/dL (75-99)
--- NOTE | 2020-04-12 14:10 | P.PN ---
Subjective Progress Note Date: 04/12/20 Vision feels that her hoarseness is slightly improved. Swallowing continues to be an issue with large boluses of liquids but is otherwise fairly normal. She feels that the lymph nodes in the neck are starting to diminish. Objective - Vital Signs Vital signs: Vital Signs Temp 98.1 F 04/12/20 11:25 Pulse 76 04/12/20 12:39 Resp 16 04/12/20 11:25 BP 153/79 04/12/20 11:25 Pulse Ox 95 04/12/20 11:25 Intake & Output 04/11/20 04/12/20 04/12/20 18:59 06:59 18:59 Other: Voiding Method Toilet # Voids 2 - Constitutional General appearance: Present: no acute distress - EENT Eyes: Present: EOMI ENT: Present: hearing grossly normal - Neck Neck: Present: lymphadenopathy (Largest submandibular lymph node is unchanged though possibly slightly less tender. Adjacent upper cervical nodes and right middle cervical node questionably slightly smaller. Does appear to be somewhat less tender) - Respiratory Respiratory: bilateral: CTA - Cardiovascular Rhythm: regular Heart sounds: normal: S1, S2 - Gastrointestinal General gastrointestinal: Present: normal bowel sounds, soft - Integumentary Integumentary: Present: normal - Neurologic Neurologic: Present: CNII-XII intact - Musculoskeletal Musculoskeletal: Present: strength equal bilaterally - Psychiatric Psychiatric: Present: A&O x's 3, appropriate affect - Labs CBC & Chem 7: 04/10/20 13:41 04/12/20 05:27 Labs: Abnormal Lab Results - Last 24 Hours (Table) 04/11/20 04/12/20 04/12/20 Range/Units 15:12 05:27 07:25 Chloride 108 H 108 H (98-107) mmol/L BUN 19 H (7-17) mg/dL Creatinine 1.08 H (0.52-1.04) mg/dL Glucose 183 H (74-99) mg/dL POC Glucose (mg/dL) 118 H (75-99) mg/dL 04/12/20 Range/Units 11:26 Chloride (98-107) mmol/L BUN (7-17) mg/dL Creatinine (0.52-1.04) mg/dL Glucose (74-99) mg/dL POC Glucose (mg/dL) 131 H (75-99) mg/dL Microbiology - Last 24 Hours (Table) 04/10/20 13:41 Group A Strep Throat Culture - Final Throat Assessment and Plan (1) Cervical lymphadenopathy Narrative/Plan: The patient had a computed tomography scan of the chest performed to rule out any chest pathology specifically central long, or mediastinal mass lesions caus ing right recurrent laryngeal nerve palsy. His was negative for the same, or any other suspicious finding. Results were discussed with the patient. - Therefore at this time further workup would revert back to her symptoms of hoarseness, and the cervical adenopathy. There does appear to be some im provement in the tenderness of the neck nodes. There may be some slight improvement in size so this is questionable on my exam. Patient however feels that there is less pressure. - He was advised that essentially at this time further workup would be deferred to ENT. She will likely need examination of the vocal cords given her symptoms of hoarseness. If this is negative, and adenopathy persist then it would be reasonable to proceed with lymph node biopsy. The patient was advised that ENT follow-up, and workup could be done as an outpatient Current Visit: Yes Status: Acute Code(s): R59.0 - LOCALIZED ENLARGED LYMPH NODES SNOMED Code(s): 222192261
[2020-04-12 17:16] LABS: Glucose,Whole Blood 171 mg/dL (75-99)
[2020-04-12 20:37] LABS: Glucose,Whole Blood 207 mg/dL (75-99)
--- NOTE | 2020-04-12 22:12 | P.PN ---
Progress Note - Text Progress Note Date: 04/12/20 Chief Complaint: Swelling in the right side of the neck History of presenting complaint: This is a pleasant 59-year-old patient of Dr. Letha Song. Chronic stable medical conditions include hypertension, osteoarthritis, ALLERGIES, patient is a smoker. presentation story started about 10 days ago. Initially patient is felt to have a right ear infection. Saw her family doctor. prescribed antibiotics. noticed enlarging lymph node in the right side of the neck below the right jaw and the ear. Also had fever and chills. significant cough. With the sinus drainage. Decreased appetite decreased taste. Was finding it hard to swallow. After receiving antibiotics for now arrival feeling a bit better. Today-feeling a bit better. A bit less swelling of the neck. Swallowing better. Decreased postnasal drip. Hoarseness present. Review of systems: Was done for constitutional, cardiovascular, GI, pulmonary. relevant finding as above Active Medications Acetaminophen (Acetaminophen Tab 325 Mg Tab) 650 mg PO Q6HR PRN PRN Reason: Mild Pain or Fever > 100.5 Hydrocodone Bitart/Acetaminophen (Hydrocodone/Apap 7.5-325mg 1 Each Tab) 1 each PO QID PRN PRN Reason: Pain Al Hydroxide/Mg Hydroxide (Mag Hydrox/Al Hydrox/Simeth 30 Ml Cup) 15 ml PO Q6HR PRN PRN Reason: Indigestion Albuterol Sulfate (Albuterol Nebulized 2.5 Mg/3 Ml) 2.5 mg INHALATION RT-Q4H PRN PRN Reason: Shortness Of Breath Albuterol/Ipratropium (Ipratropium-Albuterol 3 Ml Neb) 3 ml INHALATION RT-QID [facility] Last Admin: 04/12/20 20:29 Dose: 3 ml Documented by: Alprazolam (Alprazolam 0.25 Mg Tab) 0.25 mg PO Q6HR PRN PRN Reason: Anxiety Last Admin: 04/12/20 21:58 Dose: 0.25 mg Documented by: Azelastine HCl (Azelastine 137mcg/[place]) 2 spray EA NOSTRIL BID [facility] Last Admin: 04/12/20 21:42 Dose: 2 spray Documented by: Budesonide (Budesonide 1 Mg/2 Ml Nebu) 1 mg INHALATION RT-BID [facility] Last Admin: 04/12/20 20:29 Dose: 1 mg Documented by: Calcium Carbonate/Glycine (Calcium Carbonate 500 Mg Chewable) 1,000 mg PO Q4HR PRN PRN Reason: Dyspepsia Duloxetine HCl (Duloxetine Hcl 20 Mg Capsule.) 40 mg PO DAILY [facility] Last Admin: 04/12/20 08:53 Dose: 40 mg Documented by: Duloxetine HCl (Duloxetine Hcl 60 Mg Capsule.Dr) 60 mg PO DAILY [facility] Last Admin: 04/12/20 08:53 Dose: 60 mg Documented by: Enoxaparin Sodium (Enoxaparin 40 Mg/0.4 Ml Syringe) 40 mg SQ DAILY [facility] Last Admin: 04/12/20 08:55 Dose: 40 mg Documented by: Hydroxyzine HCl (Hydroxyzine Hcl 25 Mg Tab) 25 mg PO TID PRN PRN Reason: Anxiety Cefazolin Sodium 2 gm/ Sodium (Chloride) 50 mls @ 100 mls/hr IVPB Q8HR [facility] Last Admin: 04/12/20 17:31 Dose: 100 mls/hr Documented by: Sodium Chloride (Saline 0.9%) 1,000 mls @ 75 mls/hr IV .[id number] [facility] Last Admin: 04/12/20 08:56 Dose: 75 mls/hr Documented by: Insulin Aspart (Insulin Aspart (Novolog) 100 Unit/Ml Vial) 0 unit SQ [facility]; Protocol Last Admin: 04/12/20 21:43 Dose: 6 unit Documented by: Lactulose (Lactulose 20 Gm/30 Ml Cup) 20 gm PO DAILY PRN PRN Reason: Constipation Loratadine/Pseudoephedrine Sulfate (Loratadine-Pseudoeph 5-120 Mg 1 Each Tab.Er.12h) 1 each PO Q12HR [facility] Last Admin: 04/12/20 21:27 Dose: Not Given Documented by: Magnesium Hydroxide (Magnesium Hydroxide 2,400 Mg/10 Ml Cup) 2,400 mg PO DAILY PRN PRN Reason: Constipation Melatonin (Melatonin 3 Mg Tablet) 3 mg PO HS PRN PRN Reason: Insomnia Methylprednisolone Sodium Succinate (Methylprednisolone Sod Succi 40 Mg/Ml 1 Ml Vial) 40 mg IV Q8HR [facility] Last Admin: 04/12/20 17:31 Dose: 40 mg Documented by: Miscellaneous Information (Rx Info: Iv Contrast Was Given 1 Each Misc) 1 each MISCELLANE DAILY PRN PRN Reason: Per Protocol Stop: 04/13/20 13:10 Montelukast Sodium (Montelukast 10 Mg Tab) 10 mg PO QAM [facility] Last Admin: 04/12/20 08:54 Dose: 10 mg Documented by: Naloxone HCl (Naloxone 0.4 Mg/Ml 1 Ml Vial) 0.2 mg IV Q2M PRN PRN Reason: Opioid Reversal Naproxen (Naproxen 250 Mg Tab) 250 mg PO TID [facility] Last Admin: 04/12/20 21:42 Dose: 250 mg Documented by: Nicotine (Nicotine 21mg/24hr Patch) 1 patch TRANSDERM DAILY [facility] Last Admin: 04/12/20 09:00 Dose: 1 patch Documented by: Mirabegron [ Myrbetriq] 25 Mg Tab .Er.24h) 25 mg PO QAM [facility] Last Admin: 04/12/20 08:55 Dose: Not Given Documented by: Ondansetron HCl (Ondansetron 4 Mg/2 Ml Vial) 4 mg IVP Q8HR PRN PRN Reason: Nausea And Vomiting Past medical history to include: Hypertension, osteoarthritis, anxiety, Social history: daughter lives with her. Smokes about three-quarter packs a day. Alcohol occasionally. Physical examination: VITAL SIGNS: 98.1, 83, 16, 153 was 79, 95% on room air GENERAL: Laying in bed, tired EYES: Pupils equal. Conjunctiva normal. HEENT: External appearance of nose and ears normal, oral cavity grossly normal enlarged lymph node, tender behind right jaw, below the earlobe. NECK: JVD not raised; masses not palpable. HEART: First and second heart sounds are normal; no edema. LUNGS: Respiratory rate increased, decreased breath sounds prolonged expiration . ABDOMEN: Soft, nontender, liver spleen not palpable, no masses palpable. PSYCH: Alert and oriented x3; mood and affect anxious. LYMPHATICS: Lymph nodes palpable in the right side of the neck. Decreased tenderness INVESTIGATIONS, reviewed in the clinical context: April 12: Potassium 4.4 creatinine 0.83 WBC 20.5 hemoglobin 12.2 platelets 351 increased neutrophils potassium 4.4 creatinine 0.97 Coronavirus [PCF]-not detected Heterophile antibody negative, group A strep rapid-negative Computed tomography scan soft tissue neck without contrast: Abnormal suspicion right-sided neck adenopathy. Neoplasm could not be excluded. Assessment and plan: -Acute COPD exacerbation in a current smoker. Patient started on , nebulized bronchodilators. IV Solu-Medrol. -Enlarging right cervical adenopathy likely secondary to right ear infection. Will need further follow-up with with ENT -possible acute otitis media. Change antibiotic to ceftriaxone -Chronic nicotine dependence patient active cigarette smoker -Chronic anxiety disorder, for depression on Cymbalta -Acute on chronic sinusitis with active postnasal drainage precipitating bouts of coughing. Responding to Claritin-D -Hoarseness to be followed by ENT Discussed with oncology Dr. Jung. Patient get a computed tomography scan of the chest. Care was discussed with the patient. Questions answered. ENT has been consulted.
[2020-04-13] MEDS: methylPREDNISolone SOD SUCCI 40 MG/ML 1 ML VIAL IV SCH ×2 (00:16→07:49)
[2020-04-13] MEDS: SODIUM CHLORIDE 0.9% 1,000 ML IV SCH (00:18)
[2020-04-13 06:59] LABS: Glucose,Whole Blood 133 mg/dL (75-99)
[2020-04-13] MEDS: INSULIN ASPART (NovoLOG) 100 UNIT/ML VIAL SQ SCH ×2 (07:49→12:12)
[2020-04-13] MEDS: AZELASTINE 137MCG/SPRAY EA NOSTRIL SCH (07:50)
[2020-04-13] MEDS: NICOTINE 21MG/24HR PATCH TRANSDERM SCH (07:50)
[2020-04-13] MEDS: DULoxetine HCL 60 MG CAPSULE.DR PO SCH (07:51)
[2020-04-13] MEDS: ENOXAPARIN 40 MG/0.4 ML SYRINGE SQ SCH (07:51)
[2020-04-13] MEDS: DULoxetine HCL 20 MG CAPSULE.DR PO SCH (07:51)
[2020-04-13] MEDS: MONTELUKAST 10 MG TAB PO SCH (07:52)
[2020-04-13] MEDS: LORATADINE-PSEUDOEPH 5-120 MG 1 EACH TAB.ER.12H PO SCH (07:53)
[2020-04-13] MEDS: MIRABEGRON 25 MG PO SCH (07:54)
[2020-04-13] MEDS: IPRATROPIUM-ALBUTEROL 3 ML NEB INHALATION SCH ×2 (07:57→11:52)
[2020-04-13] MEDS: BUDESONIDE 1 MG/2 ML NEBU INHALATION SCH (07:57)
[2020-04-13 11:15] LABS: Glucose,Whole Blood 240 mg/dL (75-99)
[2020-04-13] MEDS: NAPROXEN 250 MG TAB PO SCH (11:39)
[2020-04-13 11:47] VITALS: BP 166/71; RESP 16; TEMP 98.1
[2020-04-13 12:02] VITALS: PULSE 70
--- NOTE | 2020-04-13 12:43 | P.PN ---
Subjective Progress Note Date: 04/13/20 Principal diagnosis: rt neck mass In f/u today pt is reporting much improved symptoms. Her right neck is less swollen, less painful, denies dysphagia, odynophagia, fever. Objective - Vital Signs Vital signs: Vital Signs Temp 98.1 F 04/13/20 11:45 Pulse 70 04/13/20 12:01 Resp 16 04/13/20 12:01 BP 166/71 04/13/20 11:45 Pulse Ox 95 04/13/20 11:45 Intake & Output 04/12/20 04/13/20 04/13/20 18:59 06:59 18:59 Intake Total 950 Balance 950 Intake: Intake, IV Titration 950 Amount Sodium Chloride 0.9% 1, 900 000 ml @ 75 mls/hr IV . [id number] ARACELI Rx#:[id number] cefTRIAXone 1 gm In 50 Sodium Chloride 0.9% 50 ml @ 100 mls/hr IVPB Q24H ARACELI Rx#:[id number] Other: Voiding Method Toilet Toilet # Voids 3 - Constitutional General appearance: Present: average body habitus, cooperative, no acute distress - EENT Eyes: Present: anicteric sclerae, EOMI, poor dentition ENT: Present: hearing grossly normal - Neck Details: Rt neck, no node or mass palpable but fullness noted. - Respiratory Respiratory: bilateral: CTA - Cardiovascular Heart sounds: normal: S1, S2 - Peripheral edema leg Peripheral Edema: bilateral: None - Gastrointestinal General gastrointestinal: Present: normal bowel sounds, soft - Integumentary Integumentary: Present: normal - Neurologic Neurologic: Present: CNII-XII intact - Musculoskeletal Musculoskeletal: Present: strength equal bilaterally - Psychiatric Psychiatric: Present: A&O x's 3, appropriate affect, intact judgment & insight - Labs CBC & Chem 7: 04/10/20 13:41 04/12/20 05:27 Labs: Abnormal Lab Results - Last 24 Hours (Table) 04/12/20 04/12/20 04/13/20 Range/Units 17:15 20:36 06:57 POC Glucose (mg/dL) 171 H 207 H 133 H (75-99) mg/dL 04/13/20 Range/Units 11:14 POC Glucose (mg/dL) 240 H (75-99) mg/dL Microbiology - Last 24 Hours (Table) 04/10/20 13:41 Group A Strep Throat Culture - Final Throat Assessment and Plan (1) Cervical lymphadenopathy Narrative/Plan: Improving with abx and supportive care. Pt states up to 3 episodes a year of similar symptoms. Needs f/u, further evaluation and treatment of underlying problem. Current Visit: Yes Status: Acute Priority: High Code(s): R59.0 - LOCALIZED ENLARGED LYMPH NODES SNOMED Code(s): 926175653 (2) Leukocytosis Narrative/Plan: Most likely 2/2 infection. No labs since admit. Recommend f/u with PCP for monitoring. Referral back to Hem/Onc if persistent or progressive Current Visit: Yes Status: Acute Priority: Low Code(s): D72.829 - ELEVATED WHITE BLOOD CELL COUNT, UNSPECIFIED SNOMED Code(s): 427940085 Plan: No further intervention from Hem/Onc at this time. We are available if pt needs any further f/u.
--- NOTE | 2020-04-13 23:35 | P.DS ---
Providers Date of admission: 04/10/20 16:22 Expected date of discharge: 04/13/20 Attending physician: Javid Westfall Consults: 04/10/20 15:50 Consult Physician Urgent Consulting Provider: Moe Jung Consult Reason/Comments: Neck mass, cervical lymphadenopathy, rule out cancer Do you want consulting provider notified?: Yes 04/10/20 15:51 Consult Physician Routine Consulting Provider: David Diaz Consult Reason/Comments: Cervical lymphadenopathy, neck mass rule out cancer Do you want consulting provider notified?: Yes Primary care physician: Johnathan Song [facility] Course: Chief Complaint: Swelling in the right side of the neck History of presenting complaint: This is a pleasant 59-year-old patient of Dr. Letha Song. Chronic stable medical conditions include hypertension, osteoarthritis, ALLERGIES, patient is a smoker. presentation story started about 10 days ago. Initially patient is felt to have a right ear infection. Saw her family doctor. prescribed antibiotics. noticed enlarging lymph node in the right side of the neck below the right jaw and the ear. Also had fever and chills. significant cough. With the sinus drainage. Decreased appetite decreased taste. Was finding it hard to swallow. After receiving antibiotics for now arrival feeling a bit better. Admitted with acute otitis media, acute pharyngitis and reactive painful right neck lymphadenopathy. Patient was started on NSAIDs and IV ceftriaxone. Also had COPD exacerbation in this patient with current smoker. Seen by Dr. Arriaga from hematology oncology. Today-breathing much better. Oral intake improved. Less wheezing. Patient again counseled about smoking cessation importance of the same. Patient will follow with Dr. David Florian from ENT as an outpatient. Discussion and discharge planning more than 35 minutes Consultation: Dr. Jung from hematology Dr. Florian from ENT Past medical history to include: Hypertension, osteoarthritis, anxiety, Social history: daughter lives with her. Smokes about three-quarter packs a day. Alcohol occasionally. Physical examination: VITAL SIGNS: 98.1, 99, 16, 166 with 71, 95% GENERAL: Laying in bed, comfortable EYES: Pupils equal. Conjunctiva normal. HEENT: External appearance of nose and ears normal, oral cavity grossly normal enlarged lymph node, tender behind right jaw, below the earlobe. NECK: JVD not raised; masses not palpable. HEART: First and second heart sounds are normal; no edema. LUNGS: Respiratory rate increased, decreased breath sounds , air entry better . ABDOMEN: Soft, nontender, liver spleen not palpable, no masses palpable. PSYCH: Alert and oriented x3; mood and affect anxious. LYMPHATICS: Lymph nodes palpable in the right side of the neck. Decreased tenderness INVESTIGATIONS, reviewed in the clinical context: April 12: Potassium 4.4 creatinine 0.83 WBC 20.5 hemoglobin 12.2 platelets 351 increased neutrophils potassium 4.4 c reatinine 0.97 Coronavirus [PCF]-not detected Heterophile antibody negative, group A strep rapid-negative Computed tomography scan soft tissue neck without contrast: Abnormal suspicion right-sided neck adenopathy. Neoplasm could not be excluded. Assessment and plan: -Acute COPD exacerbation in a current smoker. Patient started on , nebulized bronchodilators. IV Solu-Medrol.-Improved -Enlarging right cervical adenopathy likely secondary to right ear infection. Will need further follow-up with with ENT -possible acute otitis media. Acute pharyngitis responded well to IV ceftriaxone -Chronic nicotine dependence patient active cigarette smoker. Counseled -Chronic anxiety disorder, for depression on Cymbalta -Acute on chronic sinusitis with active postnasal drainage precipitating bouts of coughing. Responding to Claritin-D -Hoarseness to be followed by ENT Disposition: Home Patient Condition at Discharge: Fair Plan - Discharge Summary New Discharge Prescriptions: New Cefuroxime Axetil [Ceftin] 500 mg PO BID 1 Days #10 tab Loratadine-Pseudoeph 5-120 mg [Claritin-D 12 Hour] 1 each PO Q12HR #14 tab.er.12h Nicotine 21Mg/24Hr Patch [Habitrol] 1 patch TRANSDERM DAILY #14 patch Melatonin 3 mg PO HS PRN tablet PRN Reason: Insomnia Naproxen [Naprosyn] 250 mg PO TID #14 tab predniSONE 10 mg PO DAILY #30 tab Acetaminophen Tab [Tylenol] 650 mg PO Q6HR PRN tab PRN Reason: Mild Pain Or Fever > 100.5 Continue DULoxetine HCL [Cymbalta] 60 mg PO DAILY HYDROcodone/APAP 7.5-325MG [[place] 7.5-325] 1 tab PO TID PRN PRN Reason: Pain Montelukast [Singulair] 10 mg PO HS DULoxetine HCL 40 mg PO DAILY Albuterol Sulfate [Ventolin HFA] 2 puff INHALATION RT-Q4H PRN PRN Reason: Shortness Of Breath EPINEPHrine (Auto Inject) [Epipen] 0.3 mg IM ONCE PRN PRN Reason: Anaphylaxis Tiotropium 2.5 Mcg/Puff [Spiriva Respimat 2.5 Mcg] 2 puff INHALATION RT-DAILY Fluticasone Nasal [place] [Flonase Nasal [place]] 2 spray EA NOSTRIL DAILY Azelastine HCl 2 spray EA NOSTRIL BID Albuterol Nebulized [Ventolin Nebulized] 2.5 mg INHALATION RT-Q8H PRN PRN Reason: Shortness Of Breath Discontinued hydrOXYzine HCL 25 mg PO TID PRN PRN Reason: Anxiety Cetirizine HCl [Zyrtec] 10 mg PO QAM Loratadine [Claritin] 10 mg PO DAILY Discharge Medication List DULoxetine HCL [Cymbalta] 60 mg PO DAILY 10/25/18 [History] HYDROcodone/APAP 7.5-325MG [[place] 7.5-325] 1 tab PO TID PRN 10/25/18 [History] Montelukast [Singulair] 10 mg PO HS 10/25/18 [History] Albuterol Nebulized [Ventolin Nebulized] 2.5 mg INHALATION RT-Q8H PRN 04/10/20 [History] Albuterol Sulfate [Ventolin HFA] 2 puff INHALATION RT-Q4H PRN 04/10/20 [History] Azelastine HCl 2 spray EA NOSTRIL BID 04/10/20 [History] DULoxetine HCL 40 mg PO DAILY 04/10/20 [History] EPINEPHrine (Auto Inject) [Epipen] 0.3 mg IM ONCE PRN 04/10/20 [History] Fluticasone Nasal [place] [Flonase Nasal [place]] 2 spray EA NOSTRIL DAILY 04/10/20 [History] Tiotropium 2.5 Mcg/Puff [Spiriva Respimat 2.5 Mcg] 2 puff INHALATION RT-DAILY 04/10/20 [History] Acetaminophen Tab [Tylenol] 650 mg PO Q6HR PRN tab 04/13/20 [Rx] Cefuroxime Axetil [Ceftin] 500 mg PO BID 1 Days #10 tab 04/13/20 [Rx] Loratadine-Pseudoeph 5-120 mg [Claritin-D 12 Hour] 1 each PO Q12HR #14 tab.er.12h 04/13/20 [Rx] Melatonin 3 mg PO HS PRN tablet 04/13/20 [Rx] Naproxen [Naprosyn] 250 mg PO TID #14 tab 04/13/20 [Rx] Nicotine 21Mg/24Hr Patch [Habitrol] 1 patch TRANSDERM DAILY #14 patch 04/13/20 [Rx] predniSONE 10 mg PO DAILY #30 tab 04/13/20 [Rx] Follow up Appointment(s)/Referral(s): Moe Jung MD [STAFF PHYSICIAN] - As Needed Shanice Lawrence MD [REFERRING] - 1-2 days (office will get paper work together and call patient with time and date of appt) David Diaz DO [Doctor of Osteopathic Medicine] - 04/16/20 9:30 am Johnathan Song DO [Primary Care Provider] - 04/20/20 11:30 am Patient Instructions/Handouts: Lymphadenopathy (ED), Leukocytosis (DC) Activity/Diet/Wound Care/Special Instructions: Please return to the Emergency Department if symptoms worsen or any other concerns. Discharge Disposition: HOME SELF-CARE
== END 2020-04-13 14:54 | disposition home or self-care (01) | DRG 192 ==
LOC: EC 13:06 → 5NMEDONC 16:22
PROVIDERS: ADMIT Hospitalist; ATTEND Hospitalist
DX: J44.1 Chronic obstructive pulmonary disease with (acute) exacerbation (principal); J01.90 Acute sinusitis, unspecified; I10 Essential (primary) hypertension; Z71.6 Tobacco abuse counseling; F17.210 Nicotine dependence, cigarettes, uncomplicated; F32.9 Major depressive disorder, single episode, unspecified; F41.9 Anxiety disorder, unspecified; H66.91 Otitis media, unspecified, right ear; K59.00 Constipation, unspecified; J02.9 Acute pharyngitis, unspecified; R13.10 Dysphagia, unspecified; R59.0 Localized enlarged lymph nodes; M19.90 Unspecified osteoarthritis, unspecified site; Z79.899 Other long term (current) drug therapy; G51.0 Bell's palsy; Z20.822 Contact with and (suspected) exposure to COVID-19; Z90.89 Acquired absence of other organs; Z88.0 Allergy status to penicillin; Z88.8 Allergy status to other drugs, medicaments and biological substances
CPT/HCPCS: 36415; 70491; 71260; 80048; 80053; 83605; 85025; 86308; 87081; 87430; 87635; 94640; 96361; 96365; 96375; 99285

== ENCOUNTER 2022-10-12 06:32 | Day surgery (SDC) | payer MEDICARE, OTHER ==
[2022-10-06 14:53] VITALS: BMI 18.8
[2022-10-12] MEDS ORDERED: SODIUM CHLORIDE 0.9% 500 ML 500 ML IV ONE (06:39)
[2022-10-12 06:53] VITALS: TEMP 98.6
[2022-10-12] MEDS ORDERED: fentaNYL (PF) 50 MCG/ML 2 ML AMP ONE (07:16)
[2022-10-12] MEDS: BENZOCAINE SPRAY 1 CAN TOPICAL ONE ×2 (07:30→07:57)
[2022-10-12] MEDS ORDERED: MIDAZOLAM 2 MG/2 ML VIAL IVP ONE ×2 (07:57→08:00)
[2022-10-12] MEDS: fentaNYL (PF) 50 MCG/ML 2 ML AMP IVP ONE ×2 (07:58→08:00)
[2022-10-12 08:26] VITALS: RESP 16
--- NOTE | 2022-10-12 10:02 | P.PCN ---
Date of Procedure: 10/12/22 Operative Findings: TRANSESOPHAGEAL ECHOCARDIOGRAM NEON PUMPER: DYLAN PRERY MD, RPVI INDICATION: Aortic insufficiency SEDATION: Conscious sedation COMPLICATION: None LEVEL OF SEDATION Moderate to sedation length of 15 minutes PROCEDURE DESCRIPTION: After obtaining an informed consent, the patient was brought to transesophageal echocardiogram room. Pulse oximetry and heart monitors were attached to the patient. The patient throat was sprayed using lidocaine. The patient was turned into left lateral position. After that a bite guard was placed. After an appropriate conscious sedation was initiated, the transesophageal echocardiogram was advanced through a bite guard into the mid esophagus. A 2-D echocardiogram images, color Doppler images, continuous wave images, pulse-wave images, of various cardiac structure were performed. After that the transesophageal echocardiogram probe was advanced into the stomach and fixed to obtain transgastric view was. The probe was brought into the mid esophagus. Inter-atrial septum was interrogated using 2D images, color Doppler images, and then contrast study. After that transesophageal echocardiogram was withdrawn out and upon withdrawing the descending thoracic aorta all the way up to the arch was evaluated. FINDING: The left ventricular dimension and systolic function appeared to be within normal limits. The ejection fraction appeared to be in the range of 50-55%. The right ventricle appeared to be of normal size and function. The left atrium and right atrium are mildly dilated. The interatrial septum appeared to be intact. The left atrial appendage appeared to be intact. The aortic valve appeared to be trileaflet valve with no stenosis with moderate insufficiency and no evidence of reversal flow in the descending aorta was identified. The mitral valve appeared to be mildly thickened with mild MR only. There is moderate tricuspid regurgitation was identified. No evidence of pericardial effusion seen CONCLUSION: 1. Normal biventricular dimension and systolic function 2. Intact left atrial appendage and intact interatrial septum 3. Trileaflet aortic valve with no stenosis was moderate insufficiency only 4. Mildly thickened mitral valve leaflets was mild MR 5. Moderate tricuspid regurgitation 6. No evidence of pericardial effusion
[2022-10-12 10:05] VITALS: BP 130/67; PULSE 75
== END 2022-10-12 09:31 | disposition home or self-care (01) ==
LOC: CATHCVL 06:32
PROVIDERS: ATTEND Internal Medicine Interventional Cardiology
DX: I08.2 Rheumatic disorders of both aortic and tricuspid valves (principal); I42.8 Other cardiomyopathies; E78.5 Hyperlipidemia, unspecified; I25.10 Atherosclerotic heart disease of native coronary artery without angina pectoris; F17.200 Nicotine dependence, unspecified, uncomplicated; Z79.890 Hormone replacement therapy; Z79.899 Other long term (current) drug therapy; Z88.0 Allergy status to penicillin; Z88.8 Allergy status to other drugs, medicaments and biological substances; Z79.82 Long term (current) use of aspirin
CPT/HCPCS: 93312; 93320; 93325; J2250; J3010

== ENCOUNTER → 2023-01-11 | Outpatient (CLI) | payer MEDICARE, OTHER ==
--- NOTE | 2023-01-11 12:09 | CT ---
EXAMINATION TYPE: CT brain wo/w con DATE OF EXAM: 01/11/2023 COMPARISON: Prior CT brain September 06, 2013 HISTORY: Dizziness and giddiness CT DLP: 2163.2 mGycm Automated exposure control for dose reduction was used. CONTRAST: CT scan of the head is performed without and with IV Contrast, patient injected with 100 mL of Isovue 300. FINDINGS: Noncontrast images show no acute intracranial hemorrhage or midline shift. There is mild ve ntricular and sulcal prominence redemonstrated. There is mild low attenuation in periventricular whit e matter now present presumed on the basis of prior of chronic small vessel ischemic change. There is no abnormal enhancing mass. Bilateral aphakia is now seen. The visualized sinuses are clear. No susp icious opacification of the mastoid air cells. IMPRESSION: No suspicious finding seen to account for patient's symptoms.
== END | disposition home or self-care (01) ==
LOC: RADCTMAIN 11:13
PROVIDERS: ATTEND Family Medicine
DX: R42 Dizziness and giddiness (principal)
CPT/HCPCS: 70470; Q9967

== ENCOUNTER → 2023-03-10 | Outpatient (CLI) | payer MEDICARE, OTHER ==
--- NOTE | 2023-03-10 17:16 | US ---
EXAMINATION TYPE: US kidneys/renal and bladder DATE OF EXAM: 03/10/2023 COMPARISON: NONE CLINICAL INDICATION: Female, 62 years old with history of R94.4 ABNORMAL RESULTS OF KIDNEY FUNCTION S TUDIES; Abn labs EXAM MEASUREMENTS: Right Kidney: 8.2x3.6x3.3 cm Left Kidney: 9.5x3.7x2.6 cm Right Kidney: small cystic area: 0.7x0.7x0.8cm Left Kidney: No hydronephrosis or masses seen Bladder: wnl Bilateral Jets seen: Yes There is no evidence for hydronephrosis at this point in time. No nephrolithiasis is seen. The urin mayuri bladder is anechoic. Bilateral ureteral jets are seen. exam limited by bowel and rib shadows IMPRESSION: Small cyst right kidney subcentimeter in size.
== END | disposition home or self-care (01) ==
LOC: RADUSWWP 15:41
PROVIDERS: ATTEND Family Medicine
DX: N28.1 Cyst of kidney, acquired (principal); R94.4 Abnormal results of kidney function studies
CPT/HCPCS: 76770

== ENCOUNTER → 2023-03-10 | Outpatient (CLI) | payer MEDICARE, OTHER ==
--- NOTE | 2023-03-14 10:38 | MM ---
Reason for Exam: Screening (asymptomatic). Last mammogram was performed 19 year(s) and 5 month(s) ago. Patient History: Menarche at age 11. First Full-Term at age 25. Postmenopausal. Mother had breast cancer, age 67. Risk Values: Bertha 5 year model risk: 3.2%. NCI Lifetime model risk: 12.4%. Prior Study Comparison: 10/02/2001 Bilateral Screening Mammogram, [facility]. 10/15/2002 Bilateral Screening Mammogram, [facility]. 10/21/2003 Bilateral Screening Mammogram, [facility]. Tissue Density: The breast tissue is heterogeneously dense. This may lower the sensitivity of mammography. Findings: Analyzed By CAD. There is no suspicious group of microcalcifications or new suspicious mass in either breast. Overall Assessment: Benign, BI-RAD 2 Management: Screening Mammogram of both breasts in 1 year. . Patient should continue monthly self-breast exams. A clinical breast exam by your physician is recommended on an annual basis. This exam should not preclude additional follow-up of suspicious palpable abnormalities. Note on Bertha scores and lifetime risk: 1. A Bertha score greater than 3% is considered moderate risk. If this is the case, consider specialist referral to assess eligibility for a risk reducing agent. 2. If overall lifetime risk for the development of breast cancer is 20% or higher, the patient may qualify for future screening with alternating mammogram and breast MRI. Electronically signed and approved by: Jose Domínguez M.D. Radiologis
== END | disposition home or self-care (01) ==
LOC: RADMAMWWP 15:40
PROVIDERS: ATTEND Family Medicine
DX: Z12.31 Encounter for screening mammogram for malignant neoplasm of breast (principal); Z80.3 Family history of malignant neoplasm of breast; Z78.0 Asymptomatic menopausal state
CPT/HCPCS: 77063; 77067

== ENCOUNTER → 2023-10-17 | Outpatient (CLI) | payer MEDICARE, OTHER ==
[2023-10-17 14:48] LABS: Basophils # (A) 0.1 k/uL (0-0.2); Basophils % (A) 1 %; Eosinophils # (A) 0.1 k/uL (0-0.7); Eosinophils % (A) 1 %; HCT 44.1 % (34.0-46.0); HGB 14.2 gm/dL (11.4-16.0); Lymphocytes # (A) 2.2 k/uL (1.0-4.8); Lymphocytes % (A) 25 %; MCHC 32.2 g/dL (31.0-37.0); MCV 105.7 fL (80.0-100.0); Macrocytosis Moderate; Mean Platelet Volume 7.9; Monocytes # (A) 0.6 k/uL (0-1.0); Monocytes % (A) 6 %; Neutrophils # (A) 5.8 k/uL (1.3-7.7); Neutrophils % (A) 65 %; Platelet Count 273 k/uL (150-450); RBC 4.17 m/uL (3.80-5.40); RDW 14.3 % (11.5-15.5)
[2023-10-17 18:05] LABS: Stomatocytes Present
[2023-10-17 18:20] LABS: Magnesium 1.8 mg/dL (1.5-2.4); Rheumatoid Factor, Qnt <15 IU/mL (0-15)
[2023-10-17 18:22] LABS: Immunoglobulin M 46.4 mg/dL (40.0-280.0)
[2023-10-18 02:10] LABS: Cyclic Citrull Pep IgG Unit <1.5 U/mL (<=3.9); Cyclic Citrullinated Pep IgG Negative
[2023-10-18 11:45] LABS: Free Kappa Lt Chain Qnt, Serum 1.79 mg/dL (0.33-1.94); Free Lambda Lt Chain Qnt, Seru 1.72 mg/dL (0.57-2.63)
== END | disposition home or self-care (01) ==
LOC: LABWHC1 13:40
PROVIDERS: ATTEND Family Medicine
DX: T14.8XXA Other injury of unspecified body region, initial encounter (principal)
CPT/HCPCS: 36415; 82784; 82785; 83735; 83883; 85025; 86038; 86200; 86431

== ENCOUNTER 2024-02-26 15:42 | Observation (INO) | payer MEDICARE, OTHER ==
--- NOTE | 2024-02-26 15:58 | ED ---
General Adult HPI - General Chief complaint: Fall Stated complaint: dizzy, head hurts from a fall Time Seen by Provider: 02/26/24 15:56 Source: patient, RN notes reviewed Mode of arrival: EMS Limitations: no limitations - History of Present Illness Initial comments: 63-year-old female presents to the emergency department for evaluation of fall with head injury. Patient reports that she stood up quickly got lightheaded. She states that this caused her to fall forward and hit her head on a dog gate. She does not believe she lost consciousness. Denies blood thinners. She admits that she has been coughing frequently. She states that this is a productive cough. She admits to cold sweats. Denies any documented fever at home. - Related Data Home Medications Medication Instructions Recorded Confirmed DULoxetine HCL [Cymbalta] 60 mg PO DAILY 10/25/18 10/06/22 Albuterol Nebulized [Ventolin 2.5 mg INHALATION RT-Q8H PRN 04/10/20 10/06/22 Nebulized] Albuterol Sulfate [Ventolin HFA] 2 puff INHALATION RT-Q4H PRN 04/10/20 10/06/22 Azelastine HCl [Astelin Nasal 2 spray EA NOSTRIL BID 04/10/20 10/06/22 [place]] Fluticasone Nasal [place] [Flonase 2 spray EA NOSTRIL DAILY 04/10/20 10/06/22 Nasal [place]] Tiotropium 2.5 Mcg/Puff [Spiriva 2 puff INHALATION RT-DAILY 04/10/20 10/06/22 Respimat 2.5 Mcg] Aspirin EC [Ecotrin Low Dose] 81 mg PO DAILY 10/06/22 10/06/22 Atorvastatin [Lipitor] 10 mg PO DAILY 10/06/22 10/06/22 Empagliflozin [Jardiance] 10 mg PO DAILY 10/06/22 10/06/22 Furosemide [Lasix] 20 mg PO DAILY 10/06/22 10/06/22 HYDROcodone/APAP 5-325MG [[place] 1 tab PO TID PRN 10/06/22 10/06/22 5-325] Levothyroxine Sodium [Levoxyl] 25 mcg PO DAILY 10/06/22 10/06/22 Losartan Potassium [Cozaar] 12.5 mg PO DAILY 10/06/22 10/06/22 Metoprolol Succinate (ER) [Toprol 25 mg PO DAILY 10/06/22 10/06/22 Xl] Mirabegron [Myrbetriq] 25 mg PO DAILY 10/06/22 10/06/22 Potassium Chloride ER [K-Dur 20] 20 meq PO DAILY 10/06/22 10/06/22 Spironolactone 25 mg PO DAILY 10/06/22 10/06/22 hydrOXYzine HCL 25 mg PO Q8HR PRN 10/06/22 10/06/22 Allergies Allergy/AdvReac Type Severity Reaction Status Date / Time Penicillins Allergy Swelling, Verified 02/26/24 15:54 ITCHING pseudoephedrine Allergy Itching Verified 02/26/24 15:54 [From [facility]] Review of Systems ROS Statement: Those systems with pertinent positive or pertinent negative responses have been documented in the HPI. ROS Other: All systems not noted in ROS Statement are negative. Past Medical History Past Medical History: Heart Failure, COPD, Hyperlipidemia, Hypertension, Osteoarthritis (OA), Thyroid Disorder Additional Past Medical History / Comment(s): ALLERGIES/SINUS. CHRONIC PAIN. TAKING JARDIANCE FOR HEART NOT DIABETES, SEE DR. PERRY H & P, [facility]- RESOLVED History of Any Multi-Drug Resistant Organisms: None Reported Past Surgical History: Section, Tonsillectomy Additional Past Surgical History / Comment(s): SINUS SURGERY. BONE SPUR ON ONE SHOULDER. PARTIAL LEFT EAR REMOVED FOR NON HEALING SORE. COLONOSCOPY, Past Anesthesia/Blood Transfusion Reactions: No Reported Reaction Past Psychological History: Anxiety Smoking Status: Current every day smoker Past Alcohol Use History: Daily Past Drug Use History: None Reported - Past Family History Father Family Medical History: Cancer Mother Family Medical History: Cancer General Exam - General Exam Comments Initial Comments: Visual Physical Exam Vital signs reviewed General: Well-appearing, nontoxic, no acute distress. Head: Normocephalic, atraumatic, C-collar in place Eyes: PERRLA, EOMI ENT: Airway patent Chest: Nonlabored breathing Skin: No visual rash, normal skin tone Neuro: Alert and oriented 3 Musculoskeletal: No gross abnormalities Limitations: no limitations General appearance: alert, in no apparent distress Head exam: Present: atraumatic, normocephalic, normal inspection Eye exam: Present: normal appearance, PERRL, EOMI. Absent: scleral icterus, conjunctival injection, periorbital swelling ENT exam: Present: mucous membranes dry Neck exam: Present: normal inspection, full ROM. Absent: tenderness, meningismus, lymphadenopathy Respiratory exam: Present: normal lung sounds bilaterally. Absent: respiratory distress, wheezes, rales, rhonchi, stridor Cardiovascular Exam: Present: regular rate, normal rhythm, normal heart sounds. Absent: systolic murmur, diastolic murmur, rubs, gallop, clicks GI/Abdominal exam: Present: soft, normal bowel sounds. Absent: distended, tenderness, guarding, rebound, rigid Extremities exam: Present: normal inspection, full ROM, normal capillary refill. Absent: tenderness, pedal edema, joint swelling, calf tenderness Back exam: Present: normal inspection, full ROM. Absent: tenderness Neurological exam: Present: alert, oriented X3, CN II-XII intact Psychiatric exam: Present: normal affect, normal mood Skin exam: Present: warm, dry, intact, normal color. Absent: rash Course Vital Signs 02/26/24 02/26/24 02/26/24 15:45 19:14 21:10 Temperature 98.3 F Pulse Rate 92 80 Pulse Rate [ 90 Pulse Oximetery ] Respiratory 20 18 Rate Blood Pressure 98/51 107/63 Blood Pressure 94/58 [Right Arm Sitting] Blood Pressure 104/58 [Right Arm Standing] Blood Pressure 133/70 [Right Arm Supine] O2 Sat by Pulse 97 99 Oximetry Medical Decision Making - Medical Decision Making Quick note preformed and electronically signed by Ana Troncoso PA-C Was pt. sent in by a medical professional or institution ([facility], [employer], urgent care, hospital, or fci...) When possible be specific @ -[No] Did you speak to anyone other than the patient for history (EMS, parent, family, police, friend...)? What history was obtained from this source @ -[No] Did you review nursing and triage notes (agree or disagree)? Why? @ -[I reviewed and agree with nursing and triage notes] Were old charts reviewed (outside hosp., previous admission, EMS record, old EKG, old radiological studies, urgent care reports/EKG's, fci records)? Report findings @ -[No old charts were reviewed] Differential Diagnosis (chest pain, altered mental status, abdominal pain women, abdominal pain men, vaginal bleeding, weakness, fever, dyspnea, syncope, headache, dizziness, GI bleed, back pain, seizure, CVA, palpatations, mental health, musculoskeletal)? @ -[Differential Dizziness: Benign paroxysmal positional Vertigo, Meniere's disease, otitis media, acoustic neuroma, vertebrobasilar insufficiency, cerebellar stroke, encephalitis, hypovolemic, arrhythmia, coronary artery syndrome, anemia, this is not meant to be an all-inclusive list ] EKG interpreted by me (3pts min.). @ -EKG at 1610 shows sinus rhythm rate 88, AR 128, QRS 74, QTQTc [id number] X-rays interpreted by me (1pt min.). @ -[None done] CT interpreted by me (1pt min.). @ -[CT brain and cervical spine shows no acute intracranial process, chronic compression deformity at C6, no acute fracture of the C-spine] U/S interpreted by me (1pt. min.). @ -[None done] What testing was considered but not performed or refused? (CT, X-rays, U/S, lab s)? Why? @ -[None] What meds were considered but not given or refused? Why? @ -[None] Did you discuss the management of the patient with other professionals (professionals i.e. , PA, [employer]ER [employer], lab, RT, psych nurse, social science teacher, oyster fisherman, teacher, field crop technical officer, caseworker protective services)? Give summary @ -[Case discussed with Dr. Carvajal, radiology. Discussed the appearance of the compression deformity and asked if this could Be compared to a soft tissue neck CT that the patient had in 2020. An addendum was added to the CT read. Case discussed with Yfn Almeida who is accepting of the admission. ] Was smoking cessation discussed for >3mins.? @ -[No] Was critical care preformed (if so, how long)? @ -[No] Were there social determinants of health that impacted care today? How? (Homelessness, low income, unemployed, alcoholism, drug addiction, transportation, low edu. Level, literacy, decrease access to med. care, senior care, rehab)? @ -[No] Was there de-escalation of care discussed even if they declined (Discuss DNR or withdrawal of care, Hospice)? DNR status @ -[No] What co-morbidities impacted this encounter? (DM, HTN, Smoking, COPD, CAD, Cancer, CVA, ARF, Chemo, Hep., AIDS, mental health diagnosis, sleep apnea, morbid obesity)? @ -[None] Was patient admitted / discharged? Hospital course, mention meds given and route, prescriptions, significant lab abnormalities, going to OR and other pert inent info. @ -[Admitted. Patient presented to the emergency department for evaluation of lightheadedness and fall. Patient states that she has been getting lightheaded for the past 3 weeks. She notes that today this caused her to fall forward and hit her head. Because of this patient underwent laboratory studies. Findings significant for leukocytosis to 18.4, hemoglobin stable at 14.9; CMP shows sodium 128, potassium 3.2, creatinine 1.58. Patient underwent CT brain and C- spine which showed no acute intracranial process. The initial read of the cervical spine CT reported an indeterminate age compression deformity of C6 superior endplate. I spoke with Dr. Carvajal regarding this and asked for comparision to CT soft tissue neck that was preformed in 2020. Addendum was added and the compression deformity appears stable from 2020 and therefore is chronic. Patient has no acute fracture of the C-spine. C-collar was removed. Patient underwent x-ray of chest and right femur. XR reveals no acute fracture or dislocation. Chest XR shows no acute process. Patient will be admitted medically as it seems the patients fall was d/t medical reasons. Case discussed with Dr. Zamorano. ] Undiagnosed new problem with uncertain prognosis? @ -[No] Drug Therapy requiring intensive monitoring for toxicity (Heparin, Nitro, Insulin, Cardizem)? @ -[No] Were any procedures done? @ -[No] Diagnosis/symptom? @ -[fall, lightheadedness] Acute, or Chronic, or Acute on Chronic? @ -[default] Uncomplicated (without systemic symptoms) or Complicated (systemic symptoms)? @ -[default] Side effects of treatment? @ -[No] Exacerbation, Progression, or Severe Exacerbation? @ -[No] Poses a threat to life or bodily function? How? (Chest pain, [place], HI, pneumonia, PE, COPD, DKA, ARF, appy, cholecystitis, CVA, Diverticulitis, Homicidal, Suicidal, threat to staff... and all critical care pts) @ -[No] - Lab Data Result diagrams: 02/26/24 16:13 02/26/24 16:13 Lab Results 02/26/24 02/26/24 02/26/24 Range/Units 16:13 16:13 16:13 WBC 18.4 H (3.8-10.6) k/uL RBC 4.42 (3.80-5.40) m/uL Hgb 14.9 (11.4-16.0) gm/dL Hct 44.1 (34.0-46.0) % MCV 99.8 (80.0-100.0) fL MCH 33.7 (25.0-35.0) pg MCHC 33.8 (31.0-37.0) g/dL RDW 13.9 (11.5-15.5) % Plt Count 255 (150-450) k/uL MPV 7.4 Neutrophils % 75 % Lymphocytes % 19 % Monocytes % 4 % Eosinophils % 1 % Basophils % 0 % Neutrophils # 13.7 H (1.3-7.7) k/uL Lymphocytes # 3.5 (1.0-4.8) k/uL Monocytes # 0.8 (0-1.0) k/uL Eosinophils # 0.1 (0-0.7) k/uL Basophils # 0.1 (0-0.2) k/uL Sodium 128 L (137-145) mmol/L Potassium 3.2 L (3.5-5.1) mmol/L Chloride 96 L (98-107) mmol/L Carbon Dioxide 13 L (22-30) mmol/L Anion Gap 19 mmol/L BUN 41 H (7-17) mg/dL Creatinine 1.58 H (0.52-1.04) mg/dL Est GFR (CKD-EPI)AfAm 39 (>60 ml/min/1.73 sqM) Est GFR (CKD-EPI)NonAf 34 (>60 ml/min/1.73 sqM) Glucose 202 H (74-99) mg/dL Calcium 9.0 (8.4-10.2) mg/dL Magnesium 1.8 (1.6-2.3) mg/dL Total Bilirubin 0.9 (0.2-1.3) mg/dL AST 24 (14-36) U/L ALT 14 (4-34) U/L Alkaline Phosphatase 101 (38-126) U/L Total Protein 6.2 L (6.3-8.2) g/dL Albumin 4.0 (3.5-5.0) g/dL Urine Color Urine Appearance (Clear) Urine pH (5.0-8.0) Ur Specific [place] (1.001-1.035) Urine Protein (Negative) Urine Glucose (UA) (Negative) Urine Ketones (Negative) Urine Blood (Negative) Urine Nitrite (Negative) Urine Bilirubin (Negative) Urine Urobilinogen (<2.0) mg/dL Ur Leukocyte Esterase (Negative) Urine RBC (0-5) /hpf Urine WBC (0-5) /hpf Ur Squamous Epith Cells (0-4) /hpf Hyaline Casts (0-2) /lpf Urine Mucus (None) /hpf 02/26/24 Range/Units 19:27 WBC (3.8-10.6) k/uL RBC (3.80-5.40) m/uL Hgb (11.4-16.0) gm/dL Hct (34.0-46.0) % MCV (80.0-100.0) fL MCH (25.0-35.0) pg MCHC (31.0-37.0) g/dL RDW (11.5-15.5) % Plt Count (150-450) k/uL MPV Neutrophils % % Lymphocytes % % Monocytes % % Eosinophils % % Basophils % % Neutrophils # (1.3-7.7) k/uL Lymphocytes # (1.0-4.8) k/uL Monocytes # (0-1.0) k/uL Eosinophils # (0-0.7) k/uL Basophils # (0-0.2) k/uL Sodium (137-145) mmol/L Potassium (3.5-5.1) mmol/L Chloride (98-107) mmol/L Carbon Dioxide (22-30) mmol/L Anion Gap mmol/L BUN (7-17) mg/dL Creatinine (0.52-1.04) mg/dL Est GFR (CKD-EPI)AfAm (>60 ml/min/1.73 sqM) Est GFR (CKD-EPI)NonAf (>60 ml/min/1.73 sqM) Glucose (74-99) mg/dL Calcium (8.4-10.2) mg/dL Magnesium (1.6-2.3) mg/dL Total Bilirubin (0.2-1.3) mg/dL AST (14-36) U/L ALT (4-34) U/L Alkaline Phosphatase (38-126) U/L Total Protein (6.3-8.2) g/dL Albumin (3.5-5.0) g/dL Urine Color Yellow Urine Appearance Clear (Clear) Urine pH 5.0 (5.0-8.0) Ur Specific [place] 1.015 (1.001-1.035) Urine Protein Negative (Negative) Urine Glucose (UA) 2+ H (Negative) Urine Ketones Negative (Negative) Urine Blood Negative (Negative) Urine Nitrite Negative (Negative) Urine Bilirubin Negative (Negative) Urine Urobilinogen <2.0 (<2.0) mg/dL Ur Leukocyte Esterase Negative (Negative) Urine RBC 1 (0-5) /hpf Urine WBC 1 (0-5) /hpf Ur Squamous Epith Cells 1 (0-4) /hpf Hyaline Casts 33 H (0-2) /lpf Urine Mucus Rare H (None) /hpf Disposition Clinical Impression: Hyponatremia, Weakness, Lightheadedness Disposition: ADMITTED IP TO THIS HOSP Condition: Stable Is patient prescribed a controlled substance at d/c from ED?: No
--- NOTE | 2024-02-26 16:45 | CT ---
EXAMINATION TYPE: CT brain cspine wo con DATE OF EXAM: 02/26/2024 4:33 PM COMPARISON: None. CLINICAL INDICATION: Female, 63 years old with history of fall; pt c.o a fall, felt dizzy prior and f ell fowards, hit head., pain TECHNIQUE: Brain: Multiple axial CT images of the brain were obtained without IV contrast. Cspine: Axial CT images from the skull base to the inferior aspect of T2 we obtained without intraven ous contrast. Coronal and sagittal reformatted images were also reviewed. . CT DLP: 1190.4 mGycm, Automated exposure control for dose reduction was used. FINDINGS: Brain: Extra-axial spaces: No abnormal extra-axial fluid collections. Ventricular system: Within normal limits Cerebral parenchyma: No acute intraparenchymal hemorrhage or mass effect. The corbin-white junction is well differentiated. Cerebellum: Unremarkable. Mass effect: No evidence of midline shift. Intracranial vasculature: unremarkable Soft tissues: Normal. Calvarium/osseous structures: No depressed skull fracture. Paranasal sinuses and mastoid air cells: Clear. Visualized orbits: Bilateral aphakia Cervical spine: Fracture: Mild compression of C6 inferior endplate 25% height loss no significant retropulsion. Uncle ar chronicity of this. No other fractures identified. Osseous structures: Multilevel degenerative disc disease changes with endplate spurring and disc oste ophyte complex's. Vertebral alignment: Within normal limits. Spinal canal/Neural Foramina: No evidence of significant spinal canal narrowing. No evidence for sign ificant neural foraminal stenosis. Neck soft tissues: Prevertebral soft tissues are within normal limits. Other: The airway is patent. The lung apices are clear. IMPRESSION: 1. No acute intracranial process. 2. Nonspecific white matter changes, likely secondary to chronic small vessel ischemic disease. 3. Buckling/compression deformity of the C6 superior endplate. Consider further evaluation with MRI to exclude acute compression deformity. 4. Mild multilevel degenerative disc disease. [facility], , 02/26/2024 4:42 PM
[2024-02-26 16:52] LABS: Basophils # (A) 0.1 k/uL (0-0.2); Basophils % (A) 0 %; Eosinophils # (A) 0.1 k/uL (0-0.7); Eosinophils % (A) 1 %; HCT 44.1 % (34.0-46.0); HGB 14.9 gm/dL (11.4-16.0); Lymphocytes # (A) 3.5 k/uL (1.0-4.8); Lymphocytes % (A) 19 %; MCH 33.7 pg (25.0-35.0); MCHC 33.8 g/dL (31.0-37.0); MCV 99.8 fL (80.0-100.0); Mean Platelet Volume 7.4; Monocytes # (A) 0.8 k/uL (0-1.0); Monocytes % (A) 4 %; Neutrophils # (A) 13.7 k/uL (1.3-7.7); Neutrophils % (A) 75 %; Platelet Count 255 k/uL (150-450); RBC 4.42 m/uL (3.80-5.40); RDW 13.9 % (11.5-15.5); WBC 18.4 k/uL (3.8-10.6)
[2024-02-26 17:09] LABS: ALT 14 U/L (4-34); AST 24 U/L (14-36); African American GFR (CKD) 39 (>60 ml/min/1.73 sqM); Alkaline Phosphatase 101 U/L (38-126); Anion Gap 19 mmol/L; Blood Urea Nitrogen 41 mg/dL (7-17); Carbon Dioxide 13 mmol/L (22-30); Chloride 96 mmol/L (98-107); Glucose 202 mg/dL (74-99); Non-African American GFR(CKD) 34 (>60 ml/min/1.73 sqM); Potassium 3.2 mmol/L (3.5-5.1); Sodium 128 mmol/L (137-145); Total Bilirubin 0.9 mg/dL (0.2-1.3); Total Protein 6.2 g/dL (6.3-8.2)
[2024-02-26] MEDS: SODIUM CHLORIDE 0.9% 1,000 ML IV ONE (19:26)
[2024-02-26] MEDS: POTASSIUM CHLORIDE ER 20 MEQ TAB.ER PO STA (19:26)
--- NOTE | 2024-02-26 19:35 | XR ---
EXAMINATION TYPE: XR chest 2V DATE OF EXAM: 02/26/2024 7:06 PM CLINICAL INDICATION:Female, 63 years old with history of fall; [facility] COMPARISON: None TECHNIQUE: XR chest 2V Frontal view of the chest. FINDINGS: Lungs/Pleura: There is no evidence of pleural effusion, focal consolidation, or pneumothorax. Lungs are slightly underexpanded. Pulmonary vascularity: Unremarkable. Heart/mediastinum: Cardiomediastinal silhouette is unremarkable. Musculoskeletal: No acute osseous pathology. IMPRESSION: No acute cardiopulmonary disease/process. [facility], , 02/26/2024 7:33 PM
--- NOTE | 2024-02-26 19:52 | XR ---
EXAMINATION TYPE: XR femur RT DATE OF EXAM: 02/26/2024 7:06 PM CLINICAL INDICATION:Female, 63 years old with history of fall; [facility] COMPARISON: None TECHNIQUE: XR femur RT examined in Frontal and lateral projections. FINDINGS: Degenerative changes of the proximal and distal aspects of the right femur. No acute fracture or disl ocation. Phleboliths noted in the pelvis. Nonspecific sclerotic changes of the distal right femur may relate to bone island. IMPRESSION: No acute fractures or dislocation. [facility], , 02/26/2024 7:50 PM
[2024-02-26 19:55] LABS: Hyaline Casts,Urine 33 /lpf (0-2); Mucus,Urine Rare /hpf; RBC,Urine 1 /hpf (0-5); Squamous Epithelial Cell,Urine 1 /hpf (0-4); WBC,Urine 1 /hpf (0-5)
[2024-02-26 20:09] LABS: Appearance,Urine Clear (Clear); Bilirubin,Urine Negative (Negative); Blood,Urine Negative (Negative); Color,Urine Yellow; Glucose,Urine (UA) 2+ (Negative); Ketones,Urine Negative (Negative); Leukocyte Esterase,Urine Negative (Negative); Nitrite,Urine Negative (Negative); Protein,Urine Negative (Negative); Specific Gravity,Urine 1.015 (1.001-1.035); Urobilinogen,Urine <2.0 mg/dL (<2.0)
[2024-02-26] MEDS ORDERED: ACETAMINOPHEN TAB 325 MG TAB PO PRN (21:00)
[2024-02-26] MEDS ORDERED: ONDANSETRON 4 MG/2 ML VIAL IVP PRN (21:00)
[2024-02-26] MEDS ORDERED: NALOXONE 0.4 MG/ML 1 ML VIAL IV PRN (21:00)
[2024-02-26] MEDS ORDERED: HYDROmorphone 0.5 MG/0.5 ML SYRINGE IVP PRN (21:00)
[2024-02-26] MEDS: SODIUM CHLORIDE 0.9% 1,000 ML IV SCH (21:20)
[2024-02-27 08:24] LABS: African American GFR (CKD) 64 (>60 ml/min/1.73 sqM); Anion Gap 9 mmol/L; Blood Urea Nitrogen 33 mg/dL (7-17); Calcium 9.2 mg/dL (8.4-10.2); Carbon Dioxide 22 mmol/L (22-30); Chloride 105 mmol/L (98-107); Glucose 83 mg/dL (74-99); Non-African American GFR(CKD) 56 (>60 ml/min/1.73 sqM); Potassium 4.1 mmol/L (3.5-5.1); Sodium 136 mmol/L (137-145)
[2024-02-27 09:01] LABS: Basophils # (A) 0.1 k/uL (0-0.2); Basophils % (A) 1 %; Eosinophils # (A) 0.2 k/uL (0-0.7); Eosinophils % (A) 2 %; HCT 40.8 % (34.0-46.0); HGB 13.7 gm/dL (11.4-16.0); Lymphocytes % (A) 27 %; MCHC 33.6 g/dL (31.0-37.0); MCV 101.1 fL (80.0-100.0); Macrocytosis Slight; Mean Platelet Volume 7.9; Monocytes # (A) 0.8 k/uL (0-1.0); Monocytes % (A) 6 %; Neutrophils # (A) 9.3 k/uL (1.3-7.7); Neutrophils % (A) 64 %; Platelet Count 243 k/uL (150-450); RBC 4.04 m/uL (3.80-5.40); WBC 14.6 k/uL (3.8-10.6)
[2024-02-27] MEDS ORDERED: ALBUTEROL HFA INHALER INHALATION PRN (14:14)
[2024-02-27] MEDS ORDERED: HYDROcodone/APAP 5-325MG 1 EACH TAB PO PRN (14:14)
[2024-02-27 15:29] LABS: Influenza A Not Detected (Not Detectd); Influenza B Not Detected (Not Detectd); RSV Not Detected (Not Detectd)
[2024-02-27] MEDS: ISOSORBIDE MONONITRATE ER 30 MG TAB.ER.24H PO SCH (15:48)
[2024-02-27] MEDS: LEVOTHYROXINE 25 MCG TAB PO SCH (15:48)
[2024-02-27] MEDS: SYMBICORT 80-4.5 MCG INHALER INHALATION SCH (20:06)
[2024-02-27] MEDS: CLINDAMYCIN PHOSPHATE TOPICAL SCH (21:52)
--- NOTE | 2024-02-28 00:41 | HP ---
HISTORY AND PHYSICAL CHIEF COMPLAINT: Weakness, falls, and hyponatremia. HISTORY OF PRESENT ILLNESS: This is a 63-year-old woman with a past medical history of multiple medical problems, was admitted with weakness, fall, and lightheadedness. The patient also found to have hyponatremia. Sodium was 128, improved to 136. There is no history of any fever, rigors, or chills at this time. The patient has some renal failure present on admission. PAST MEDICAL HISTORY: Reviewed include heart failure, COPD. Rest of the history and rest of the chart is also reviewed. HOME MEDICATIONS: Reviewed include Toprol-XL, dose and rest of medications reviewed. ALLERGIES: Penicillin. FAMILY HISTORY: History of cancer. SOCIAL HISTORY: Smoking. Alcohol daily. REVIEW OF SYSTEMS: A 14-point review of systems is negative except as mentioned earlier. PHYSICAL EXAMINATION: VITAL SIGNS: Pulse is 75, blood pressure 129/57, respirations 16. HEENT: Conjunctivae normal. Oral mucosa dry. NECK: No jugular venous distention. CARDIOVASCULAR: S1, S2. RESPIRATIONS: Breath sounds diminished at the bases. A few scattered rhonchi. ABDOMEN: Soft. LABORATORY DATA: WBC 14.6. Otherwise, chest x-ray, no acute process. ASSESSMENT: 1. Fall and weakness and lightheadedness, rule out orthostatic hypotension, dehydration, present on admission. 2. Hyponatremia with mild acute renal failure present on admission. 3. Hypokalemia. 4. History of EtOH. 5. Congestive heart failure. 6. Chronic obstructive pulmonary disease. 7. Hypertension. 8. Hyperlipidemia. 9. Multiple complex medical issues. RECOMMENDATIONS AND DISCUSSION: This is a 63-year-old woman, who presented with multiple complex medical issues, we will monitor the patient closely. I would recommend to continue current medications, symptomatic treatment, IV fluids cautiously. White count is elevated. I would recommend flu testing also. Other than that, resume the home medications. Guarded prognosis. Further recommendations to follow. See orders for further details. PT, OT evaluation. MMODL / IJN: [id number] /
[2024-02-28 06:27] LABS: Basophils # (A) 0.1 k/uL (0-0.2); Basophils % (A) 1 %; Eosinophils # (A) 0.3 k/uL (0-0.7); Eosinophils % (A) 3 %; HCT 34.3 % (34.0-46.0); HGB 11.7 gm/dL (11.4-16.0); Lymphocytes # (A) 4.1 k/uL (1.0-4.8); Lymphocytes % (A) 44 %; MCH 34.3 pg (25.0-35.0); MCHC 34.1 g/dL (31.0-37.0); MCV 100.5 fL (80.0-100.0); Macrocytosis Slight; Mean Platelet Volume 8.1; Monocytes # (A) 0.6 k/uL (0-1.0); Monocytes % (A) 6 %; Neutrophils % (A) 44 %; Platelet Count 203 k/uL (150-450); RBC 3.41 m/uL (3.80-5.40); RDW 14.4 % (11.5-15.5); WBC 9.2 k/uL (3.8-10.6)
[2024-02-28 06:49] LABS: ALT 9 U/L (4-34); AST 14 U/L (14-36); African American GFR (CKD) 77 (>60 ml/min/1.73 sqM); Albumin 2.8 g/dL (3.5-5.0); Alkaline Phosphatase 73 U/L (38-126); Anion Gap 4 mmol/L; Blood Urea Nitrogen 26 mg/dL (7-17); Calcium 8.9 mg/dL (8.4-10.2); Carbon Dioxide 23 mmol/L (22-30); Chloride 109 mmol/L (98-107); Glucose 79 mg/dL (74-99); Non-African American GFR(CKD) 66 (>60 ml/min/1.73 sqM); Potassium 4.4 mmol/L (3.5-5.1); Sodium 136 mmol/L (137-145); Total Bilirubin 0.7 mg/dL (0.2-1.3)
[2024-02-28] MEDS: TIOTROPIUM 2.5 MCG INHALER INHALATION SCH (08:11)
[2024-02-28 09:37] VITALS: BP 131/62; PULSE 71; RESP 17; TEMP 97.7
[2024-02-28] MEDS: DULoxetine HCL 30 MG CAPSULE.DR PO SCH (10:25)
[2024-02-28] MEDS: MELOXICAM 7.5 MG TAB PO SCH (10:25)
[2024-02-28] MEDS: ATORVASTATIN 10 MG TAB PO SCH (10:25)
[2024-02-28] MEDS: DAPAGLIFLOZIN PROPANEDIOL 5 MG TABLET PO SCH (10:26)
[2024-02-28] MEDS: METOPROLOL SUCCINATE (ER) 25 MG TAB.ER.24H PO SCH (10:26)
--- NOTE | 2024-03-04 05:39 | P.DS ---
Providers Date of admission: 02/26/24 21:02 Expected date of discharge: 02/28/24 Attending physician: Anthony Vega Consults: 02/27/24 16:06 Consult Physician Urgent Consulting Provider: Angie Tillman Consult Reason/Comments: dizziness, gait dysfunction Do you want consulting provider notified?: Yes Primary care physician: Johnathan Song [facility] Course: Final diagnosis Fall and weakness with lightheadedness, ruled out orthostatic hypotension, likely secondary to dehydration, present on admission Hyponatremia with mild acute renal failure, present on admission, improved Hypokalemia, improved History of EtOH and reports to drinking at least 4 shots of liquor daily, no active withdrawal noted Congestive heart failure history, unknown EF Chronic obstructive pulmonary disease, not in exacerbation Hypertension Hyperlipidemia GI prophylaxis DVT prophylaxis Full code Discharge disposition Patient is being discharged in a stable condition with guarded prognosis to home . Patient will follow-up with Dr. Song in the outpatient setting upon discharge. Patient is to continue with current medications and outpatient follow-up as scheduled. Total time taken is greater than 35 minutes. Hospital course This is a 63-year-old female who was recently admitted with hyponatremia along with falls and weakness being closely monitored. Patient not actively withdrawing although does report she drinks at least 4 shots of liquor daily. Sodium level normal at this time after gentle hydration and recommend complete alcohol cessation. Patient with weakness evaluated by physical therapy doing well and will be going home. Patient encouraged to quit alcohol and possible inpatient alcohol rehab. Resources provided. Please refer to other consultation notes for further HPI. Currently no reports of chest pain, shortness of breath, or palpitations. Patient is afebrile. No reports of nausea or vomiting and patient is tolerating diet. Patient will be discharged home today. High risk for readmissions given continued alcohol use Physical exam: Gen: This is a 63-year-old female who is awake, alert and oriented x 3, thin built, elderly appearing HEENT: Head is atraumatic, normocephalic. Pupils equal, round. Sclerae is anicteric. NECK: Supple. No JVD. No lymphadenopathy. No thyromegaly. LUNGS: Diminished breath sounds bilaterally otherwise clear to auscultation. No wheezes or rhonchi. No intercostal retractions. HEART: Regular rate and rhythm. No murmur. ABDOMEN: Soft. Thin. Bowel sounds are present. No masses. No tenderness. EXTREMITIES: No pedal edema. No calf tenderness. NEUROLOGICAL: Patient is awake, alert and oriented x3. Cranial nerves 2 through 12 are grossly intact. Please refer to medication reconciliation sheet for a list of medications. The impression and plan of care has been dictated by Lucila Schofield, Nurse Practitioner as directed. Dr. Gary MD I have performed a history and examination and MDM of this patient, discussed the same with the dictator, and agree with the dictator's assessment and plan as written ,documented as a scribe. Based on total visit time, I have performed more than 50% of the visit. Patient Condition at Discharge: Stable Plan - Discharge Summary Discharge Rx Participant: No New Discharge Prescriptions: Continue Atorvastatin [Lipitor] 10 mg PO DAILY Clindamycin Phosphate [Cleocin T 1%] 1 applic TOPICAL BID DULoxetine HCL [Cymbalta] 60 mg PO DAILY DULoxetine HCL [Cymbalta] 30 mg PO DAILY hydrOXYzine HCL [Atarax] 25 mg PO TID PRN PRN Reason: Anxiety Isosorbide Mononitrate ER [Imdur] 30 mg PO DAILY Metoprolol Succinate [Toprol XL] 25 mg PO DAILY Albuterol Sulfate [Albuterol Sulfate Hfa] 2 puff PO RT-QID PRN PRN Reason: Shortness Of Breath Celecoxib [CeleBREX] 200 mg PO BID Empagliflozin [Jardiance] 10 mg PO DAILY Fluticasone Propion/Salmeterol [Fluticasone-Salmeterol 250-50] 1 puff INHALATION RT-BID HYDROcodone/APAP 5-325MG [[place] 5-325] 1 tab PO TID PRN PRN Reason: Pain Levothyroxine Sodium [Synthroid] 25 mcg PO DAILY metroNIDAZOLE 0.75% CREAM [Metrocream 0.75%] 1 applic TOPICAL DAILY Mirabegron [Myrbetriq] 25 mg PO DAILY Ondansetron Odt [Zofran ODT] 4 mg PO Q8HR PRN PRN Reason: Nausea And Vomiting Umeclidinium [place] [Incruse Ellipta] 1 puff INHALATION RT-DAILY Discharge Medication List Albuterol Sulfate [Albuterol Sulfate Hfa] 2 puff PO RT-QID PRN 02/27/24 [History] Atorvastatin [Lipitor] 10 mg PO DAILY 02/27/24 [History] Celecoxib [CeleBREX] 200 mg PO BID 02/27/24 [History] Clindamycin Phosphate [Cleocin T 1%] 1 applic TOPICAL BID 02/27/24 [History] DULoxetine HCL [Cymbalta] 30 mg PO DAILY 02/27/24 [History] DULoxetine HCL [Cymbalta] 60 mg PO DAILY 02/27/24 [History] Empagliflozin [Jardiance] 10 mg PO DAILY 02/27/24 [History] Fluticasone Propion/Salmeterol [Fluticasone-Salmeterol 250-50] 1 puff INHALATION RT-BID 02/27/24 [History] HYDROcodone/APAP 5-325MG [[place] 5-325] 1 tab PO TID PRN 02/27/24 [History] Isosorbide Mononitrate ER [Imdur] 30 mg PO DAILY 02/27/24 [History] Levothyroxine Sodium [Synthroid] 25 mcg PO DAILY 02/27/24 [History] Metoprolol Succinate [Toprol XL] 25 mg PO DAILY 02/27/24 [History] Mirabegron [Myrbetriq] 25 mg PO DAILY 02/27/24 [History] Ondansetron Odt [Zofran ODT] 4 mg PO Q8HR PRN 02/27/24 [History] Umeclidinium [place] [Incruse Ellipta] 1 puff INHALATION RT-DAILY 02/27/24 [History] hydrOXYzine HCL [Atarax] 25 mg PO TID PRN 02/27/24 [History] metroNIDAZOLE 0.75% CREAM [Metrocream 0.75%] 1 applic TOPICAL DAILY 02/27/24 [History] Follow up Appointment(s)/Referral(s): Johnathan Song DO [Primary Care Provider] - 1-2 days Ambulatory/Diagnostic Orders: Basic Metabolic Panel [LAB.AMB] Time Frame: 3 Days, Location: None Selected Discharge Disposition: HOME SELF-CARE
--- NOTE | 2024-03-07 09:56 | P.CNNES ---
History of Present Illness Consult date: 02/28/24 Requesting physician: Lucila Schofield Reason for Consult: dizziness, gait dysfunction History of Present Illness: Patient is a 63-year-old female came to the hospital 2 days ago, 02/26/2024 at 3:42 PM for dizziness. Patient states that for the last 3-4 weeks, she has been getting dizzy. Patient states the symptoms started when she stood up out of recliner, because the dog were fighting. She reached down to grab on the baby gate and felt dizzy and she fell down and landed on the baby gate. She passed out, and eyes or back or her head and lasted for less than 1 minute. Patient states that since then, every time she stands up, she starts feeling dizziness. Does not happen, when she is sitting, laying, or rolling over in the bed or looking upwards. On asking if she gets dizzy when she bends over, states "kind of". She went to [facility] weeks ago because of dizziness, night sweats and not feeling well. She was told that she was dehydrated her electrolytes including potassium were off and she was sent home after hydration and replace electrolytes. Patient improved after she was given the above treatment but then symptoms came back. Patient states that last month, her heart medications were changed in that she got dizzy. She does have history of CHF. Vital signs on arrival blood pressure 98/51, pulse 72 temperature 98.3. Patient had orthostatics checked, in which supine blood pressure was 133/70, sitting blood pressure 94/58, and standing 104/58. Initial set was positive. Repeat orthostatics checked yesterday at 4:23 PM was also positive with supine blood pressure 144/61, sitting 120/67 and standing blood pressure 132/67. Blood test shows WBC 18.4, hemoglobin 14.9 platelets are normal. Sodium 128 potassium 3.2, BUN 41 creatinine 1.58. This has now returned back to normal with creatinine 0.91. Hepatic panel is normal. UA negative. Influenza, RSV and coronavirus PCR negative. EKG showed sinus rhythm, x-ray of the femur showed no fracture or dislocation. Chest x-ray showed no acute cardiopulmonary disease. CT head showed no acute intracranial process. Nonspecific white matter changes, likely secondary to chronic small vessel ischemic disease. I personally reviewed CT head, agree with the findings. The external auditory canals are clear. There is some fluid noticed in the right maxillary sinus and perhaps in the right mastoid sinus. CT of the cervical spine showed buckling/compression deformity of the C6 superior endplate. Mild multilevel deg enerative disc disease. The age-indeterminate compression deformity does appear stable from 2020 is therefore chronic compression deformity. No acute fracture. Patient has history of hypertension, denies diabetes or any history of strokes or TIA. Patient has smoked 1 pack per day since age 13. Patient says that she takes couple drinks about twice a week, although she mentioned to the primary team that she drinks at least 4 shots of liquor daily. Denies any use of marijuana or any drug use. Patient states she is walking better, walking in the hallway. Her dizziness has remarkably improved. Review of Systems All pertinent positive and negative review of systems as mentioned in HPI. Past Medical History Past Medical History: Heart Failure, COPD, Hyperlipidemia, Hypertension, Osteoarthritis (OA), Thyroid Disorder Additional Past Medical History / Comment(s): ALLERGIES/SINUS. CHRONIC PAIN. TAKING JARDIANCE FOR HEART NOT DIABETES, SEE DR. PERRY H & P, [facility]- RESOLVED History of Any Multi-Drug Resistant Organisms: None Reported Past Surgical History: Section, Tonsillectomy Additional Past Surgical History / Comment(s): SINUS SURGERY. BONE SPUR ON ONE SHOULDER. PARTIAL LEFT EAR REMOVED FOR NON HEALING SORE. COLONOSCOPY, Past Anesthesia/Blood Transfusion Reactions: No Reported Reaction Past Psychological History: Anxiety Smoking Status: Current every day smoker Past Alcohol Use History: Daily Additional Past Alcohol Use History / Comment(s): SMOKES 3/4-1PPD, OVER 4O+ YEARS. Past Drug Use History: None Reported - Past Family History Father Family Medical History: Cancer Mother Family Medical History: Cancer Medications and Allergies Home Medications Medication Instructions Recorded Confirmed Type Albuterol Sulfate [Albuterol 2 puff PO RT-QID PRN 02/27/24 02/27/24 History Sulfate Hfa] Atorvastatin [Lipitor] 10 mg PO DAILY 02/27/24 02/27/24 History Celecoxib [CeleBREX] 200 mg PO BID 02/27/24 02/27/24 History Clindamycin Phosphate [Cleocin T 1 applic TOPICAL BID 02/27/24 02/27/24 History 1%] DULoxetine HCL [Cymbalta] 30 mg PO DAILY 02/27/24 02/27/24 History DULoxetine HCL [Cymbalta] 60 mg PO DAILY 02/27/24 02/27/24 History Empagliflozin [Jardiance] 10 mg PO DAILY 02/27/24 02/27/24 History Fluticasone Propion/Salmeterol 1 puff INHALATION RT-BID 02/27/24 02/27/24 History [Fluticasone-Salmeterol 250-50] HYDROcodone/APAP 5-325MG [[place] 1 tab PO TID PRN 02/27/24 02/27/24 History 5-325] Isosorbide Mononitrate ER [Imdur] 30 mg PO DAILY 02/27/24 02/27/24 History Levothyroxine Sodium [Synthroid] 25 mcg PO DAILY 02/27/24 02/27/24 History Metoprolol Succinate [Toprol XL] 25 mg PO DAILY 02/27/24 02/27/24 History Mirabegron [Myrbetriq] 25 mg PO DAILY 02/27/24 02/27/24 History Ondansetron Odt [Zofran ODT] 4 mg PO Q8HR PRN 02/27/24 02/27/24 History Umeclidinium [place] [Incruse 1 puff INHALATION RT-DAILY 02/27/24 02/27/24 History Ellipta] hydrOXYzine HCL [Atarax] 25 mg PO TID PRN 02/27/24 02/27/24 History metroNIDAZOLE 0.75% CREAM 1 applic TOPICAL DAILY 02/27/24 02/27/24 History [Metrocream 0.75%] Allergies Allergy/AdvReac Type Severity Reaction Status Date / Time Penicillins Allergy Swelling, Verified 02/27/24 11:27 ITCHING pseudoephedrine Allergy Itching Verified 02/27/24 11:27 [From [facility]] Physical Examination - Vital Signs Vital Signs: Vital Signs Temp Pulse Pulse Resp BP BP BP 02/28/24 07:00 97.7 F 71 17 02/28/24 02:00 97.9 F 59 L 18 114/62 02/27/24 20:00 98.3 F 81 16 119/68 02/27/24 18:27 80 19 126/58 02/27/24 16:23 120/67 132/67 02/27/24 15:49 75 22 126/55 BP Pulse Ox 02/28/24 07:00 131/62 98 02/28/24 02:00 97 02/27/24 20:00 02/27/24 18:27 98 02/27/24 16:23 144/61 02/27/24 15:49 98 Intake and Output 02/27/24 02/28/24 02/28/24 22:59 06:59 14:59 Intake Total 118 Balance 118 Intake: Oral 118 Other: Voiding Method Toilet Toilet Toilet # Voids 1 Weight 41.73 kg Patient is an elderly female, in no acute distress. Patient is alert awake oriented to time place and person. Speech and language functions are normal. Patient can name and repeat very well. No aphasia or dysarthria. Attention, concentration and fund of knowledge is adequate. On cranial nerve examination, pupils are equal, round and reacting to light, visual carter are full on confrontation, with no neglect on double simultaneous stimulation. Extraocular muscles are intact with no nystagmus. Face is symmetric, tongue protrudes to the midline. Palatal elevation and sensation normal, hearing and shoulder shrug normal, facial sensation normal. On muscle strength testing, there is no pronator drift and the strength is normal in arms and legs distally and proximally, except left deltoid which is 4+ from previous rotator cuff surgeries. Deep tendon reflexes are symmetric 2 at the biceps, 2 brachioradialis, 2+ at the knees, and plantars downgoing bilaterally. Sensory to touch is equal with no neglect on double simultaneous stimulation. Cerebellar function showed no ataxia for [id number] testing. No dysdiadochokinesia. No ataxia for [id number] testing on either side. Tone and bulk of muscles normal. Gait deferred.. On general examination, there is no carotid bruit or murmur, S1-S2 audible. Chest is clear on consultation. Abdomen is soft nontender. No organomegaly, bowel sounds present. Peripheral pulses are present. No peripheral edema. Results - Laboratory Findings CBC and BMP: 02/28/24 05:47 02/28/24 05:47 Abnormal Lab Findings: Abnormal Labs 02/26/24 02/26/24 02/26/24 16:13 16:13 19:27 WBC 18.4 H RBC MCV Neutrophils # 13.7 H Sodium 128 L Potassium 3.2 L Chloride 96 L Carbon Dioxide 13 L BUN 41 H Creatinine 1.58 H Glucose 202 H Total Protein 6.2 L Albumin Urine Glucose (UA) 2+ H Hyaline Casts 33 H Urine Mucus Rare H 02/27/24 02/27/24 02/28/24 07:27 07:27 05:47 WBC 14.6 H RBC 3.41 L MCV 101.1 H 100.5 H Neutrophils # 9.3 H Sodium 136 L Potassium Chloride Carbon Dioxide BUN 33 H Creatinine 1.05 H Glucose Total Protein Albumin Urine Glucose (UA) Hyaline Casts Urine Mucus 02/28/24 05:47 WBC RBC MCV Neutrophils # Sodium 136 L Potassium Chloride 109 H Carbon Dioxide BUN 26 H Creatinine Glucose Total Protein 5.0 L Albumin 2.8 L Urine Glucose (UA) Hyaline Casts Urine Mucus Assessment and Plan Assessment: * Syncopal episode, and dizziness on standing up, likely due to orthostatic hypotension from dehydration. Patient feels dizzy only on standing up (every time), and denies dizziness in any other position or movement of the body. Symptoms are much improved. * Hypertension * Hypokalemia, resolved * Hyponatremia, mild * Acute kidney injury, likely due to dehydration, resolved. * History of alcoholism * Macrocytosis, due to above * Tobacco use Plan: * Orthostatics were positive on 02/26/2024, with supine blood pressure 133/70, sitting 94/58 and standing 104/58. Repeat orthostatics checked on 02/27/2024 were better with supine blood pressure 144/61, sitting 120/67 and standing 132/67. * Patient has been hydrated, renal functions have normalized. Electrolytes also improved. * Recommended patient stays well hydrated. * Recommended abstinence from alcoholism. * Patient had transesophageal echocardiogram on 10/12/2022 with normal biventricular dimensions and systolic function. Normal left atrial appendage and intact interatrial septum. Mildly thickened mitral valve leaflets. * No carotid bruit heard. * Continue Lipitor 10 mg daily. * Recommended complete tobacco cessation. * Patient to follow up with primary physician. * Neurologically, no other workup indicated. Clear for discharge. Thank you for the consult.
== END 2024-02-28 15:19 | disposition home or self-care (01) ==
LOC: EC 15:42 → 6NMEDSUR 21:02 → 1SOBS 02-27 18:59
PROVIDERS: ADMIT Hospitalist; ATTEND Hospitalist
DX: E87.1 Hypo-osmolality and hyponatremia (principal); N17.9 Acute kidney failure, unspecified; E86.0 Dehydration; E87.6 Hypokalemia; I11.0 Hypertensive heart disease with heart failure; I50.9 Heart failure, unspecified; J44.9 Chronic obstructive pulmonary disease, unspecified; E78.5 Hyperlipidemia, unspecified; S09.90XA Unspecified injury of head, initial encounter; W18.00XA Striking against unspecified object with subsequent fall, initial encounter; R26.9 Unspecified abnormalities of gait and mobility; F17.210 Nicotine dependence, cigarettes, uncomplicated; D75.89 Other specified diseases of blood and blood-forming organs; D72.829 Elevated white blood cell count, unspecified; F10.20 Alcohol dependence, uncomplicated; Z79.899 Other long term (current) drug therapy; Z79.82 Long term (current) use of aspirin; Z79.84 Long term (current) use of oral hypoglycemic drugs; Z79.890 Hormone replacement therapy; Z88.0 Allergy status to penicillin; Z88.8 Allergy status to other drugs, medicaments and biological substances; Z11.52 Encounter for screening for COVID-19; Z11.59 Encounter for screening for other viral diseases
CPT/HCPCS: 96361 ×3; 96360; 99285; 36415; 94640 ×3; 93005; 97161; 97165; 80053 ×2; 80048; 83735 ×2; 85025 ×3; 81003; 87636; 73552; 71046; 72125; 70450; G0378 ×4

== ENCOUNTER → 2024-04-23 | Outpatient (CLI) | payer MEDICARE, OTHER ==
--- NOTE | 2024-04-23 14:46 | MM ---
Reason for Exam: Screening (asymptomatic). Last mammogram was performed 1 year(s) and 1 month(s) ago. Patient History: Menarche at age 11. First Full-Term at age 25. Postmenopausal. Maternal aunt had breast cancer, age 70. Mother had breast cancer, age 67. Risk Values: Bertha 5 year model risk: 3.3%. NCI Lifetime model risk: 12.0%. Prior Study Comparison: 10/15/2002 Bilateral Screening Mammogram, [facility]. 10/21/2003 Bilateral Screening Mammogram, [facility]. 03/10/2023 Bilateral MG 3D screening mammo w/cad, [facility]. Tissue Density: The breasts are extremely dense, which lowers the sensitivity of mammography. Findings: Analyzed By CAD. There are a few scattered benign-appearing round calcifications throughout the bilateral breasts. There is no suspicious new group of microcalcifications or new suspicious mass in either breast. Overall Assessment: Benign, BI-RAD 2 Management: Screening Mammogram of both breasts in 1 year. Some advise annual bilateral breast ultrasound surveillance in patients with background extreme dense tissue. Patient should continue monthly self-breast exams. A clinical breast exam by your physician is recommended on an annual basis. This exam should not preclude additional follow-up of suspicious palpable abnormalities. Note on Bertha scores and lifetime risk: 1. A Bertha score greater than 3% is considered moderate risk. If this is the case, consider specialist referral to assess eligibility for a risk reducing agent. 2. If overall lifetime risk for the development of breast cancer is 20% or higher, the patient may qualify for future screening with alternating mammogram and breast MRI. [facility], , 04/23/2024 2:43 PM. Electronically signed and approved by: Abdullahi Ward M.D.
== END | disposition home or self-care (01) ==
LOC: RADMAMWWP 13:44
PROVIDERS: ATTEND Family Medicine
DX: Z12.31 Encounter for screening mammogram for malignant neoplasm of breast (principal); R92.343 Mammographic extreme density, bilateral breasts; R92.1 Mammographic calcification found on diagnostic imaging of breast; Z78.0 Asymptomatic menopausal state; Z80.3 Family history of malignant neoplasm of breast
CPT/HCPCS: 77063; 77067